=== PATIENT | male | born 1940 | race Caucasian/White ===

== ENCOUNTER 2021-05-31 10:16 | Outpatient (CLI) | payer MEDICARE, OTHER, SELFPAY ==
--- NOTE | ~2021-05-31 | US_ITS ---
EXAMINATION: US venous doppler [facility] EXAM DATE: 05/31/2021 10:42 INDICATION: M79.89 - Other specified soft tissue disorders, left lower extremity swelling. TECHNIQUE: Multiple grayscale, color flow and Doppler images of the left lower extremity deep venous system were obtained and reviewed. There is no prior study for comparison. FINDINGS: The left common femoral, femoral and profunda veins demonstrate normal color flow, respirat ory variation, augmentation and compressibility. Compressibility, color flow confirmed within the le ft popliteal, posterior tibial, peroneal, and greater saphenous veins. IMPRESSION: 1. No left lower extremity deep venous thrombosis. Reviewed, dictated and finalized at location A.
== END 2021-05-31 10:17 | disposition home or self-care (01) ==
PROVIDERS: PCP Family Medicine; Visit Provider Family Medicine
DX: M79.89 Other specified soft tissue disorders (principal)
CPT/HCPCS: 93971

== ENCOUNTER → 2021-08-01 09:23 | Outpatient (CLI) | payer MEDICARE, OTHER, SELFPAY ==
--- NOTE | ~2021-08-01 | XR_ITS ---
XR ankle LT min 3V 08/01/2021 09:49 Indication: Left ankle pain Procedure: 4 views left ankle Comparison: No prior studies for comparison. Findings: Ankle mortise intact. There are small degenerative calcaneal enthesophytes. Talar dome is n ormal. No acute fracture, subluxation or dislocation. Impression: 1: No acute bone or joint abnormality. Reviewed, dictated and finalized at location A. N PACKER Impression: 1: No acute bone or joint abnormality.
== END ==
PROVIDERS: PCP Family Medicine; Visit Provider Physician Assistant
DX: M25.472 Effusion, left ankle (principal)
CPT/HCPCS: 73610

== ENCOUNTER 2022-02-12 00:39 | Day surgery (SDC) | payer MEDICARE, SELFPAY ==
[2022-01-29 13:21] VITALS: BMI 29.9
[2022-02-12 09:54] VITALS: BP 116/61; PULSE 51; RESP 18; TEMP 36.6; O2SAT 99
[2022-02-12] MEDS: LACTATED RINGERS 1,000 ML 150 ML IV CONT (10:05)
--- NOTE | 2022-02-12 10:18 | P.CONGI_ITS ---
Assessment and Plan Assessment and plan (1) History of colon polyps: Code(s): Z86.010 - Personal history of colonic polyps Status: Acute Assessment and Plan: Patient has a history of colon polyps. Most recently in 2019. Patient presents today for surveillance colonoscopy. (2) Family history of colon cancer in father: Code(s): Z80.0 - Family history of malignant neoplasm of digestive organs Status: Acute Assessment and Plan: Patient's father has had colon cancer. Continued surveillance colonoscopies is advised as long as patient remains in good health. Typically every 3-5 years. GI Consult Note Consult date/time: 02/12/22 10:18 HPI: Wing Gorve is a 81 year old male Presents for screening colonoscopy. Patient's current weight appetite bowel movements are normal. He denies abdominal pain. Patient has had multiple previous colonoscopies. He has had colon polyps on previous exams. Most recent exam was 3 years prior to this. Patient is family history is significant his father had colon cancer while in his 60s. Patient presents today for neoplasia screening. Patient's past medical history is significant for a melanoma removed in the past and felt to be resected in cured. Review of Systems Review of Systems: Review of systems noncontributory. [facility] Past Medical History Medical History (Updated 02/12/22 @ 10:20 by Dhaval Kim MD) Family history of colon cancer History of melanoma Family History Family History Father Hypertension Family history of elevated blood lipids Carcinoma of colon Other No family history of cardiovascular disease Social History Social History (Updated 01/14/22 @ 11:04 by Aneta Capps PA-C) Smoking status: Former smoker Tobacco type: pipe Alcohol intake: current Drinks per week: 7 Substance use: never Substance use type: does not use Living arrangements: with family Spiritual care concerns: No Meds Home Medications and Allergies Home Medications Medication Instructions Recorded Confirmed Type hydrochlorothiazide 12.5 mg tablet 12.5 mg PO QAM #7 tabs 05/31/21 02/12/22 Rx atenolol 25 mg tablet See Rx Instructions .Route 09/10/21 02/12/22 Rx .COMPLEX #90 tabs atorvastatin 10 mg tablet 10 mg PO .COMPLEX #45 tabs 09/20/21 02/12/22 Rx tamsulosin 0.4 mg capsule See Rx Instructions .Route 10/12/21 02/12/22 Rx .COMPLEX #180 caps Allergies Allergy/AdvReac Type Severity Reaction Status Date / Time No Known Allergies Allergy Verified 02/12/22 09:46 Vital Signs Vital Signs - 24 hr 02/12/22 09:54 Temperature 97.8 F Pulse Rate 51 L Respiratory Rate 18 Blood Pressure 116/61 Pulse Oximetry 99 Oxygen Delivery Room Air Exam Narrative: Physical exam reveals patient to be alert. Vital signs stable. HEENT exam is unremarkable. Patient is anicteric. Lungs are clear to auscultation and percussion. Heart is without murmur or extra sounds. Abdominal exam bowel sounds are present soft nontender with no organomegaly. Digital external rectal exam is normal.
--- NOTE | 2022-02-12 11:08 | P.PNAN_ITS ---
Anes - Initial Pre Proc Eval Procedure: Operation Date: 02/12/22 11:00 Proposed Procedures p Screening Colonoscopy - Dhaval Kim MD Date/Time: 02/12/22 11:08 Surgeon: Dhaval Kim MD Pre Op Diagnosis: hx of colon polyps Patient Data Age: 81 Gender: M Height: 1.83 m Weight: 95.8 kg Last Vital Signs Temp 97.8 F 02/12/22 09:54 Pulse 51 L 02/12/22 09:54 Resp 18 02/12/22 09:54 BP 116/61 02/12/22 09:54 Pulse Ox 99 02/12/22 09:54 O2 Del Method Room Air 02/12/22 09:54 Allergies Allergy/AdvReac Type Severity Reaction Status Date / Time No Known Allergies Allergy Verified 02/12/22 09:46 Home Medications Medication Instructions Recorded Confirmed Type hydrochlorothiazide 12.5 mg tablet 12.5 mg PO QAM #7 tabs 05/31/21 02/12/22 Rx atenolol 25 mg tablet See Rx Instructions .Route 09/10/21 02/12/22 Rx .COMPLEX #90 tabs atorvastatin 10 mg tablet 10 mg PO .COMPLEX #45 tabs 09/20/21 02/12/22 Rx tamsulosin 0.4 mg capsule See Rx Instructions .Route 10/12/21 02/12/22 Rx .COMPLEX #180 caps Patient hx anesthesia problems: none Family hx anesthesia problems: none Results Review: All pre-operative results and documents have been reviewed as part of the pre- operative evaluation. [facility] Past Medical History Medical History (Updated 02/12/22 @ 10:20 by Dhaval Kim MD) Family history of colon cancer History of melanoma Family History Family History Father Hypertension Family history of elevated blood lipids Carcinoma of colon Other No family history of cardiovascular disease Social History Social History (Updated 01/14/22 @ 11:04 by Aneta Capps PA-C) Smoking status: Former smoker Tobacco type: pipe Alcohol intake: current Drinks per week: 7 Substance use: never Substance use type: does not use Living arrangements: with family Spiritual care concerns: No Anes - Eval Final PreProcedure Day of Procedure 02/12/22 11:08 Patient weight: normal Heart: regular rate and rhythm Lungs: clear to auscultation Neurological: alert and oriented Last oral intake: >/= 8 hours Emergent: no Anesthetic plan: proceed Anesthesia type and monitoring: general GIVS and standard monitoring Results Review: All pre-operative results and documents have been reviewed as part of the pre- operative evaluation. Informed Consent: The patient's anesthetic plan and its attendant risks and benefits were discussed with the patient/family/POA. Questions were solicited and answers provided to the satisfaction of the patient/family/POA.
[2022-02-12 11:27] VITALS: BP 94/54; PULSE 52; RESP 13; O2SAT 96
[2022-02-12 11:37] VITALS: BP 97/56; PULSE 52; RESP 20; O2SAT 95
[2022-02-12 11:47] VITALS: BP 114/67; PULSE 53; RESP 16; O2SAT 95
== END 2022-02-12 11:56 | disposition home or self-care (01) ==
PROVIDERS: PCP Family Medicine; Visit Provider Internal Medicine Gastroenterology
PROC: 0DJD8ZZ Inspection of Lower Intestinal Tract, Via Natural or Artificial Opening Endoscopic (ICD-10-PCS; CPT 45378; principal; 2022-02-12 11:00)
DX: Z12.11 Encounter for screening for malignant neoplasm of colon (principal); D12.2 Benign neoplasm of ascending colon; Z80.0 Family history of malignant neoplasm of digestive organs; K64.8 Other hemorrhoids; Z85.820 Personal history of malignant melanoma of skin; Z87.891 Personal history of nicotine dependence
CPT/HCPCS: 45385; 88305; J2704; J7120

== ENCOUNTER 2022-03-14 14:44 | Outpatient (CLI) | payer MEDICARE, SELFPAY ==
--- NOTE | ~2022-03-14 | US_ITS ---
EXAMINATION: US venous doppler [facility] DATE: 03/14/2022 15:25 INDICATION: Left lower limb pain, other specified soft tissue disorders TECHNIQUE: Rodrigues scale images without and with compression and Doppler images of the left lower extrem ity veins were obtained. COMPARISON: None FINDINGS: The left common femoral vein, profunda femoral vein, femoral vein, popliteal vein, peroneal trunk, posterior tibial veins, and greater saphenous vein are patent. IMPRESSION: 1. Patent left lower extremity veins. No evidence of deep venous thrombosis. Reviewed, dictated and finalized at location F.
--- NOTE | ~2022-03-14 | XR_ITS ---
EXAMINATION: XR shoulder LT min 2V INDICATION: Left shoulder TECHNIQUE: Two views of the left shoulder are submitted. COMPARISON: None FINDINGS: Normal alignment. No fracture. There is moderate osteoarthritis of the acromioclavicular saul int and mild osteoarthritis of the glenohumeral joint. Soft tissues are unremarkable. IMPRESSION: 1. 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 Reviewed, dictated and finalized at location F.
--- NOTE | ~2022-03-14 | XR_ITS ---
EXAMINATION: XR shoulder RT min 2V INDICATION: Right shoulder pain TECHNIQUE: Two views of the right shoulder are submitted. COMPARISON: None FINDINGS: Normal alignment. No fracture. There is advanced osteoarthritis of the acromioclavicular saul int. Mild osteoarthritis is present in the glenohumeral joint. Soft tissues are unremarkable. IMPRESSION: 1. Osteoarthritis, worst at the acromioclavicular joint. Reviewed, dictated and finalized at location F.
== END 2022-03-14 14:45 | disposition home or self-care (01) ==
PROVIDERS: PCP Family Medicine; Visit Provider Family Medicine
DX: M79.89 Other specified soft tissue disorders (principal); M19.012 Primary osteoarthritis, left shoulder; M19.011 Primary osteoarthritis, right shoulder
CPT/HCPCS: 73030; 93971

== ENCOUNTER 2022-08-29 14:09 | Outpatient (CLI) | payer MEDICARE, SELFPAY ==
--- NOTE | ~2022-08-29 | US_ITS ---
US arterial ankle brachial ind INDICATION: Medication. Leg pain. TECHNIQUE: Segmental pressures and plethysmographic and Doppler waveforms of the brachial and lower e xtremity arteries were obtained. COMPARISON: None. FINDINGS: Right and left brachial artery pressures of 132 mm Hg and 128 mm Hg, respectively, are concordant (no rmal difference <= 30 mmHg). The right ankle-brachial index (BRYON) is 1.26 (normal >= 0.9-1.0). The right great toe-brachial index (TBI) is 0.78 (normal >= 0.60). The left BRYON is 1.24. The left TBI is 0.86. IMPRESSION: 1. Normal bilateral ankle and toe brachial indices. Reviewed, dictated and finalized at location A. OR BIOINFORMATICS SCIENTIST
== END 2022-08-29 14:10 | disposition home or self-care (01) ==
PROVIDERS: PCP Family Medicine; Visit Provider Family Medicine
DX: M79.89 Other specified soft tissue disorders (principal); I10 Essential (primary) hypertension; E88.81 Metabolic syndrome and other insulin resistance; E78.2 Mixed hyperlipidemia
CPT/HCPCS: 93922

== ENCOUNTER 2022-11-12 10:44 | Outpatient (CLI) | payer MEDICARE, SELFPAY ==
[2022-11-12 11:08] LABS: Kit Draw Collected
== END 2022-11-12 10:45 | disposition home or self-care (01) ==
LOC: ANHGOSHLAB 10:46
PROVIDERS: PCP Family Medicine; Visit Provider Family Medicine
DX: N18.30 Chronic kidney disease, stage 3 unspecified (principal); R22.30 Localized swelling, mass and lump, unspecified upper limb
CPT/HCPCS: 36415

== ENCOUNTER 2022-11-12 11:34 | Outpatient (CLI) | payer MEDICARE, SELFPAY ==
--- NOTE | ~2022-11-12 | CT_ITS ---
EXAMINATION: CT soft tissue neck chest w DATE: 11/12/2022 12:28 INDICATION: Symptoms concerning for malignancy for one month. TECHNIQUE: Computed tomography (CT) of the neck and chest was performed with 75 cc Omnipaque 350 intr avenous contrast. The dose-length product was 1016.71 mGy-cm. COMPARISON: None FINDINGS: There are multiple enlarged left supraclavicular lymph nodes, largest measuring approximate ly 2.8 cm. There are enlarged left axillary lymph nodes measuring up to 5.4 cm. There are mediastinal lymph nodes measuring up to 2.6 x 2.5 cm in the prevascular space. No significant vascular abnormali ty. No endobronchial lesions. There is periaortic lymphadenopathy as well as retrocrural lymph nodes which are enlarged measuring up to 3.5 cm. There are calcified granulomas of the liver and spleen. Sp august appears to be enlarged, although incompletely visualized. No endobronchial lesions. No focal air space consolidation. No pneumothorax. Mild thoracic spondylosis. No focal lytic or blastic lesions. N o significant vascular abnormalities. IMPRESSION: 1. Extensive lower cervical/supraclavicular, left axillary, mediastinal and retroperitoneal lymphaden opathy, suspicious for lymphoma or metastatic disease. Recommend percutaneous biopsy of left supracla vicular or axillary lymph nodes. Reviewed, dictated and finalized at location L. LE MOLDER IMPRESSION: 1. Extensive lower cervical/supraclavicular, left axillary, mediastinal and ret roperitoneal lymphadenopathy, suspicious for lymphoma or metastatic disease. Re commend percutaneous biopsy of left supraclavicular or axillary lymph nodes.
[2022-11-12 12:16] LABS: Estimated Glomerular Filt Rate 53
== END 2022-11-12 11:35 | disposition home or self-care (01) ==
PROVIDERS: PCP Family Medicine; Visit Provider Family Medicine
DX: R59.9 Enlarged lymph nodes, unspecified (principal); R61 Generalized hyperhidrosis
CPT/HCPCS: 36415; 70491; 71260; Q9967

== ENCOUNTER 2022-11-20 12:36 | Outpatient (CLI) | payer MEDICARE, SELFPAY ==
--- NOTE | ~2022-11-20 | US_ITS ---
EXAMINATION: US biopsy lymph node DATE: 11/20/2022 13:30 INDICATION: Enlarged lymph nodes, unspecified. TECHNIQUE: The procedure including the risks, benefits, and alternatives was discussed with the patie nt. Risks discussed included bleeding and infection. The patient understood the risks and agreed to p roceed. The skin overlying the left axilla was prepped and draped in usual sterile fashion. Anesthet ic was administered with 1% lidocaine subcutaneously. An 18 gauge core biopsy needle was then used t o obtain 6 core biopsy specimens under continuous sonographic guidance. The entry site was cleaned an d dressed. There were no immediate complications. FINDINGS: Ultrasound images demonstrate the needle in a 3.5 x 3.2 cm left axillary lymph node. IMPRESSION: 1. Ultrasound-guided core needle biopsy of a markedly enlarged left axillary lymph node. Reviewed, dictated and finalized at location A. ER CLIPPER HELPER IMPRESSION: 1. Ultrasound-guided core needle biopsy of a markedly enlarged left axillary ly mph node.
== END 2022-11-20 12:37 | disposition home or self-care (01) ==
PROVIDERS: PCP Family Medicine; Visit Provider Family Medicine
DX: C91.10 Chronic lymphocytic leukemia of B-cell type not having achieved remission (principal)
CPT/HCPCS: 38505; 76942; 88184; 88185; 88305; 88341; 88342

== ENCOUNTER 2022-11-25 16:58 | Outpatient (CLI) | payer MEDICARE, SELFPAY | END 2022-11-25 16:59 | disposition home or self-care (01) | PROVIDERS: PCP Family Medicine; Visit Provider Internal Medicine Hematology & Oncology | DX: C91.10 Chronic lymphocytic leukemia of B-cell type not having achieved remission (principal) | CPT/HCPCS: 88184; 88185 ==

== ENCOUNTER 2023-02-10 11:26 | Outpatient (CLI) | payer MEDICARE, SELFPAY ==
[2023-02-10 12:21] LABS: Hematocrit 42.6 % (42.0-52.0); Hemoglobin 13.5 g/dL (14.0-18.0); Immature Platelet Fraction Pct 8.1 % (0.9-11.2); Mean Corpuscular HGB Conc 31.7 g/dl (32-36); Mean Corpuscular Hemoglobin 27.4 pg (26-34); Mean Corpuscular Volume 86.6 fl (80-100); Mean Platelet Volume 11.6 fl (7.4-10.4); Platelet Count Result 136 k/mm3 (150-375); Red Blood Count 4.92 M/mm3 (4.6-6.20); Red Cell Distribution Width 14.6 % (11.5-14.5); White Blood Count 25.7 K/mm3 (4.5-10.0)
[2023-02-10 13:06] LABS: Atypical Lymphocytes Present; Lymphocytes Absolute Manual 24.15 K/mm3 (1.1-4.5); Monocytes Absolute Manual 0.51 K/mm3 (0.1-0.90); Monocytes Percent Manual 2 % (3-9); Neutrophils Percent Manual 4 % (46-73); Platelet Estimate Adequate (Adequate); Schistocytes None Seen (NORMAL); Smudge Cells FEW; Total Cells Counted 100
[2023-02-10 13:28] LABS: Alanine Aminotransferase 23 U/L (6-50); Albumin Level 3.7 g/dL (3.5-5.1); Alkaline Phosphatase 94 U/L (38-126); Anion Gap 5 mmol/L (8-16); Aspartate Amino Transferase 38 U/L (17-59); Blood Urea Nitrogen 26 mg/dL (9-20); Calcium 8.6 mg/dL (8.4-10.2); Carbon Dioxide 27 mmol/L (22-30); Chloride 104 mmol/L (98-107); Estimated Glomerular Filt Rate > 60; Glucose 92 mg/dL (65-110); Potassium 4.6 mmol/L (3.4-5.0); Sodium 136 mmol/L (137-145)
[2023-02-10 13:36] LABS: Lactate Dehydrogenase 223 U/L (120-246)
== END 2023-02-10 11:27 | disposition home or self-care (01) ==
PROVIDERS: PCP Family Medicine; Visit Provider Internal Medicine Hematology & Oncology
DX: C91.10 Chronic lymphocytic leukemia of B-cell type not having achieved remission (principal)
CPT/HCPCS: 36415; 80053; 83615; 85025; 85055

== ENCOUNTER 2023-04-01 15:15 | Outpatient (CLI) | payer MEDICARE, SELFPAY ==
[2023-04-01 15:27] LABS: Basophils Absolute Auto 0.1 K/mm3 (0.0-0.1); Basophils Percent Auto 0.4 % (0.2-1.2); Eosinophils Absolute Auto 0.7 K/mm3 (0-0.3); Eosinophils Percent Auto 2.2 % (0-4.4); Hematocrit 41.6 % (42.0-52.0); Hemoglobin 13.3 g/dL (14.0-18.0); Immature Granulocyte Absolute 0.05 K/mm3 (0.00-0.031); Immature Granulocyte Percent A 0.1 % (0-0.5); Lymphocytes Absolute Auto 27.98 K/mm3 (0.9-3.2); Lymphocytes Percent Auto 83.3 % (18.3-44.2); Mean Corpuscular Hemoglobin 27.9 pg (26-34); Mean Corpuscular Volume 87.2 fl (80-100); Mean Platelet Volume 10.6 fl (7.4-10.4); Monocytes Absolute Auto 0.9 K/mm3 (0.1-0.6); Monocytes Percent Auto 2.6 % (2.6-8.5); Neutrophils Absolute Auto 3.8 K/mm3 (1.3-6.7); Neutrophils Percent Auto 11.4 % (45.5-73.1); Platelet Count Result 154 k/mm3 (150-375); Red Blood Count 4.77 M/mm3 (4.6-6.20); White Blood Count 33.6 K/mm3 (4.5-10.0)
[2023-04-01 15:31] LABS: Blood Urea Nitrogen 28 mg/dL (8-26); Carbon Dioxide 28 mmol/L (22-30); Chloride 100 mmol/L (98-109); Estimated Glomerular Filt Rate 53; Glucose 98 mg/dL (70-105); Ionized Calcium (POC) 1.19 mmol/L (1.11-1.31); Potassium 4.4 mmol/L (3.5-4.9); Sodium 138 mmol/L (138-146)
[2023-04-01 15:34] LABS: Atypical Lymphocytes Present; Platelet Estimate Adequate (Adequate); Schistocytes None Seen (NORMAL); Smudge Cells FEW
[2023-04-01 16:30] LABS: Alanine Aminotransferase 23 U/L (6-50); Alkaline Phosphatase 98 U/L (38-126); Anion Gap 2 mmol/L (8-16); Aspartate Amino Transferase 36 U/L (17-59); Blood Urea Nitrogen 29 mg/dL (9-20); Carbon Dioxide 30 mmol/L (22-30); Chloride 102 mmol/L (98-107); Estimated Glomerular Filt Rate 58; Glucose 100 mg/dL (65-110); Lactate Dehydrogenase 223 U/L (120-246); Potassium 4.4 mmol/L (3.4-5.0); Sodium 134 mmol/L (137-145)
== END 2023-04-01 15:16 | disposition home or self-care (01) ==
LOC: ANHLAB 15:17
PROVIDERS: PCP Family Medicine; Visit Provider Internal Medicine Hematology & Oncology
DX: C91.10 Chronic lymphocytic leukemia of B-cell type not having achieved remission (principal)
CPT/HCPCS: 36415; 80047; 80053; 83615; 85025

== ENCOUNTER 2023-04-01 16:43 | Outpatient (CLI) | payer MEDICARE, SELFPAY ==
--- NOTE | ~2023-04-01 | US_ITS ---
EXAMINATION: US venous doppler [facility] DATE: 04/01/2023 17:28 INDICATION: Left lower limb swelling. TECHNIQUE: Grayscale ultrasound images without and with compression and Doppler ultrasound images of the left lower extremity veins were obtained. COMPARISON: None. FINDINGS: The visualized portions of left common femoral vein, profunda (deep) femoral vein, femoral vein, popl iteal vein, peroneal veins, posterior tibial veins, and greater saphenous vein outflow are patent. IMPRESSION: 1. No deep venous thrombosis. Reviewed, dictated and finalized at location E.
== END 2023-04-01 16:44 | disposition home or self-care (01) ==
PROVIDERS: PCP Family Medicine; Visit Provider Internal Medicine Hematology & Oncology
DX: M79.89 Other specified soft tissue disorders (principal)
CPT/HCPCS: 36415; 80047; 80053; 83615; 85025; 93971

== ENCOUNTER 2023-07-16 11:33 | Outpatient (CLI) | payer MEDICARE, SELFPAY ==
[2023-07-16 11:47] LABS: Basophils Absolute Auto 0.1 K/mm3 (0.0-0.1); Basophils Percent Auto 0.7 % (0.2-1.2); Eosinophils Absolute Auto 0.6 K/mm3 (0-0.3); Eosinophils Percent Auto 6.4 % (0-4.4); Hematocrit 41.6 % (42.0-52.0); Hemoglobin 13.4 g/dL (14.0-18.0); Immature Granulocyte Absolute 0.04 K/mm3 (0.00-0.031); Immature Granulocyte Percent A 0.5 % (0-0.5); Immature Platelet Fraction Pct 13.9 % (0.9-11.2); Lymphocytes Percent Auto 39.6 % (18.3-44.2); Mean Corpuscular HGB Conc 32.2 g/dl (32-36); Mean Corpuscular Hemoglobin 28.6 pg (26-34); Mean Corpuscular Volume 88.7 fl (80-100); Monocytes Absolute Auto 0.6 K/mm3 (0.1-0.6); Monocytes Percent Auto 7.5 % (2.6-8.5); Neutrophils Absolute Auto 3.9 K/mm3 (1.3-6.7); Neutrophils Percent Auto 45.3 % (45.5-73.1); Platelet Count Result 94 k/mm3 (150-375); Red Blood Count 4.69 M/mm3 (4.6-6.20); Red Cell Distribution Width 15.1 % (11.5-14.5); White Blood Count 8.6 K/mm3 (4.5-10.0)
== END 2023-07-16 11:34 | disposition home or self-care (01) ==
PROVIDERS: PCP Family Medicine; Visit Provider Internal Medicine Hematology & Oncology
DX: C91.10 Chronic lymphocytic leukemia of B-cell type not having achieved remission (principal)
CPT/HCPCS: 36415; 85025; 85055

== ENCOUNTER 2023-11-20 07:46 | Outpatient (RCR) | payer MEDICARE, SELFPAY | END 2024-02-18 23:59 | disposition home or self-care (01) | LOC: ANHAUDASC 07:46 | PROVIDERS: PCP Family Medicine; Visit Provider Family Medicine | DX: Z46.1 Encounter for fitting and adjustment of hearing aid (principal) | CPT/HCPCS: 92593 ==

== ENCOUNTER 2023-12-11 12:47 | Outpatient (CLI) | payer MEDICARE, SELFPAY | END 2023-12-11 12:48 | disposition home or self-care (01) | LOC: ANHAUDASC 12:48 | PROVIDERS: PCP Family Medicine; Visit Provider Nurse Practitioner | DX: H90.3 Sensorineural hearing loss, bilateral (principal) | CPT/HCPCS: 92557; 92567 ==

== ENCOUNTER 2024-01-19 10:42 | Outpatient (CLI) | payer MEDICARE, SELFPAY ==
--- NOTE | ~2024-01-19 | US_ITS ---
EXAMINATION: US venous doppler UE RT DATE: 01/19/2024 12:31 INDICATION: Right upper limb swelling. TECHNIQUE: Grayscale ultrasound images without and with compression and Doppler ultrasound images of the right upper extremity veins were obtained. COMPARISON: None. FINDINGS: The visualized portions of the right internal jugular vein, subclavian vein, axillary vein, brachial veins, basilic vein, cephalic vein, radial vein, and ulnar vein are patent. IMPRESSION: 1. No deep venous thrombosis. Reviewed, dictated and finalized at location A.
== END 2024-01-19 10:43 | disposition home or self-care (01) ==
LOC: ANHIMG 10:43
PROVIDERS: PCP Family Medicine; Visit Provider Internal Medicine Hematology & Oncology
DX: M79.89 Other specified soft tissue disorders (principal)
CPT/HCPCS: 93971

== ENCOUNTER 2024-02-03 10:19 | Outpatient (CLI) | payer MEDICARE, SELFPAY ==
--- NOTE | ~2024-02-03 | XR_ITS ---
Right Hand Technique: PA, oblique, and lateral views were obtained. Clinical History: Swelling Findings: No acute fracture or dislocation is seen. Osseous alignment is anatomic. There are subchond ral cysts at the second and third metacarpal heads. There are scattered mild degenerative changes of interphalangeal joints of the fingers. Soft tissues are unremarkable. Impression: Mild degenerative changes, as above. Reviewed, dictated and finalized at location . Impression: Mild degenerative changes, as above.
== END 2024-02-03 10:20 ==
LOC: GOSHIMG 10:21
PROVIDERS: PCP Family Medicine; Visit Provider Family Medicine
DX: M79.89 Other specified soft tissue disorders (principal)
CPT/HCPCS: 73130

== ENCOUNTER 2024-02-09 12:04 | Day surgery (SDC) | payer MEDICARE, SELFPAY ==
[2024-02-09] VITALS (11 sets, daily range): BP systolic 102–159; BP diastolic 55–115; PULSE 59–88; RESP 18–19; TEMP 36.2–36.5; O2SAT 96–100
--- NOTE | ~2024-02-09 | XR_ITS ---
EXAMINATION: XR esophogram water soluble DATE: 02/09/2024 16:33 INDICATION: Impacted food bolus with inability to swallow without vomiting TECHNIQUE: The patient drank water-soluble contrast. Fluoroscopic spot radiographs of the hypopharynx and esophagus were obtained. Fluoroscopy exposure time was 1.4 minutes. A total of 795 fluoroscopic images were recorded. Total DAP was 13.399 Gycm^2 COMPARISON: None. FINDINGS: On the initial swallow contrast can be seen fluid within the already distended esophagus. T here was an initial obstruction in the distal esophagus with irregular distal margin to the contrast bolus. After the images were saved contrast could be seen in the stomach and the filling defect in th e distal esophagus had resolved. Subsequent swallows passed freely into the stomach. There is a small sliding-type hiatal hernia with gastroesophageal junction approximately 3 to 4 cm above level of the diaphragm. There appears to be a fixed mild relative narrowing of the esophagus at the level of the esophageal bulb. There are smooth margins but with atypical undulating contour to the mucosa of the d istal esophagus. IMPRESSION: 1. Obstructing bolus of material in the distalmost esophagus on the initial swallow which passed spon taneously with no residual intraluminal material or obstruction on subsequent swallows. 2. Small sliding-type hiatal hernia with atypical contour and mild narrowing at the level of the esop hageal bulb which raises the possibility of focal esophagitis, Hassan's esophagus or malignancy and would recommend endoscopy for further evaluation. Reviewed, dictated and finalized at location A. IMPRESSION: 1. Obstructing bolus of material in the distalmost esophagus on the initial swa llow which passed spontaneously with no residual intraluminal material or obstr uction on subsequent swallows. 2. Small sliding-type hiatal hernia with atypical contour and mild narrowing at the level of the esophageal bulb which raises the possibility of focal esophag itis, Hassan's esophagus or malignancy and would recommend endoscopy for furth er evaluation.
--- NOTE | 2024-02-09 15:23 | PC.NURSE ---
gave report to GI charge nurse @[phone]. all questions answered.
[2024-02-09 15:26] LABS: Basophils Percent Auto 0.5 % (0.2-1.2); Eosinophils Absolute Auto 0.1 K/mm3 (0-0.3); Eosinophils Percent Auto 1.4 % (0-4.4); Hematocrit 45.1 % (42.0-52.0); Hemoglobin 14.7 g/dL (14.0-18.0); Immature Granulocyte Absolute 0.03 K/mm3 (0.00-0.031); Immature Granulocyte Percent A 0.4 % (0-0.5); Lymphocytes Absolute Auto 1.92 K/mm3 (0.9-3.2); Lymphocytes Percent Auto 26.3 % (18.3-44.2); Mean Corpuscular HGB Conc 32.6 g/dl (32-36); Mean Corpuscular Hemoglobin 28.4 pg (26-34); Mean Corpuscular Volume 87.1 fl (80-100); Mean Platelet Volume 12.7 fl (7.4-10.4); Monocytes Absolute Auto 0.6 K/mm3 (0.1-0.6); Monocytes Percent Auto 7.5 % (2.6-8.5); Neutrophils Absolute Auto 4.7 K/mm3 (1.3-6.7); Neutrophils Percent Auto 63.9 % (45.5-73.1); Platelet Count Result 104 k/mm3 (150-375); Red Blood Count 5.18 M/mm3 (4.6-6.20); Red Cell Distribution Width 13.6 % (11.5-14.5); White Blood Count 7.3 K/mm3 (4.5-10.0)
[2024-02-09 15:39] LABS: Anion Gap 7 mmol/L (4-12); Blood Urea Nitrogen 21 mg/dL (9-20); Carbon Dioxide 25 mmol/L (22-30); Chloride 108 mmol/L (98-107); Estimated CRCL calculation 46 ml/min; Estimated Glomerular Filt Rate > 60; Glucose 97 mg/dL (65-110); Sodium 140 mmol/L (137-145)
--- NOTE | 2024-02-09 16:06 | PC.NURSE ---
Shanel from GI states they will place IV and start fluids. updated family member Suha per patient request
--- NOTE | 2024-02-09 16:09 | WPDANESEPPF ---
Anes - Initial Pre Proc Eval Procedure: Operation Date: 02/09/24 16:00 Proposed Procedures p Esophagogastroduodenoscopy - Tano Barrera MD Date/Time: 02/09/24 16:09 Pre Op Diagnosis: difficulty swallowing Patient Data Age: 83 Gender: M Height: 1.8 m Weight: 90.6 kg Last Vital Signs Temp 36.2 C L 02/09/24 12:20 Pulse 88 02/09/24 15:31 Resp 19 02/09/24 15:31 BP 150/81 H 02/09/24 15:31 Pulse Ox 100 02/09/24 15:38 O2 Del Method Room Air 02/09/24 13:59 Allergies Allergy/AdvReac Type Severity Reaction Status Date / Time No Known Allergies Allergy Verified 02/09/24 16:08 Home Medications Medication Instructions Recorded Confirmed Type naproxen 500 mg tablet See Rx Instructions .Route 02/10/23 02/03/24 Rx .COMPLEX #60 tabs zanubrutinib 80 mg capsule mg PO 07/28/23 02/03/24 History (Reecekinsa) atenolol 25 mg tablet 25 mg PO DAILY #90 tabs 08/28/23 02/03/24 Rx atorvastatin 10 mg tablet 10 mg PO .COMPLEX #45 tabs 08/28/23 02/03/24 Rx tamsulosin 0.4 mg capsule See Rx Instructions .Route 11/03/23 02/03/24 Rx .COMPLEX #180 caps cephalexin 500 mg capsule 500 mg PO Q8H #30 caps 02/03/24 02/03/24 Rx methylprednisolone 4 mg tablets in See Rx Instructions PO PER PKG DIR 02/03/24 02/03/24 Rx a dose pack (Medrol (Anthony)) #21 ea Laboratory Tests 02/09/24 15:14 WBC 7.3 K/mm3 (4.5-10.0) RBC 5.18 M/mm3 (4.6-6.20) Hgb 14.7 g/dL (14.0-18.0) Hct 45.1 % (42.0-52.0) MCV 87.1 fl (80-100) MCH 28.4 pg (26-34) MCHC 32.6 g/dl (32-36) RDW 13.6 % (11.5-14.5) Plt Count 104 L k/mm3 (150-375) MPV 12.7 H fl (7.4-10.4) Immature Gran % (Auto) 0.4 % (0-0.5) Neut % (Auto) 63.9 % (45.5-73.1) Lymph % (Auto) 26.3 % (18.3-44.2) [place] % (Auto) 7.5 % (2.6-8.5) Eos % (Auto) 1.4 % (0-4.4) Baso % (Auto) 0.5 % (0.2-1.2) Lymph # (Auto) 1.92 K/mm3 (0.9-3.2) [place] # (Auto) 0.6 K/mm3 (0.1-0.6) Eos # (Auto) 0.1 K/mm3 (0-0.3) Baso # (Auto) 0.0 K/mm3 (0.0-0.1) Abs Immat Gran (auto) 0.03 K/mm3 (0.00-0.031) Absolute Neuts (auto) 4.7 K/mm3 (1.3-6.7) Absolute Nucleated RBC 0.000 K/mm3 (0.0-0.012) Nucleated RBC % 0.0 % (0.0-0.2) Sodium 140 mmol/L (137-145) Potassium 4.0 mmol/L (3.4-5.0) Chloride 108 H mmol/L (98-107) Carbon Dioxide 25 mmol/L (22-30) Anion Gap 7 mmol/L (4-12) BUN 21 H mg/dL (9-20) Creatinine 1.10 mg/dL (0.7-1.3) Estim Creat Clear Calc 46 ml/min Estimated GFR > 60 (59 - ) Glucose 97 mg/dL (65-110) Calcium 9.0 mg/dL (8.4-10.2) Patient hx anesthesia problems: none Family hx anesthesia problems: none Results Review: All pre-operative results and documents have been reviewed as part of the pre-operative evaluation. [facility] Past Medical History Medical History (Updated 02/09/24 @ 16:11 by Haroldo Dc DO) Chronic kidney disease, stage 3 Essential (primary) hypertension Family history of colon cancer History of melanoma Mixed hyperlipidemia Family History Family History Father Hypertension Family history of elevated blood lipids Carcinoma of colon Other No family history of cardiovascular disease Social History Social History Social History: Caffeine-daily Smoking status: Former smoker Tobacco type: pipe Alcohol intake: current Drinks per week: 7 Substance use: never Substance use type: does not use Lack of Transportation: No Lack of Food: Never True Current Housing: I Have Housing Concerned About Future Housing: No Difficulty Paying Gas/Electric Bills: No Difficulty Paying for Meds: No Currently Unemployed: No Education: Associate Degree Difficulty w/ Childcare or Family Care: No Living arrangements: with fam
[2024-02-09] MEDS: LACTATED RINGERS 1,000 ML 150 ML IV CONT (16:14)
--- NOTE | 2024-02-09 16:23 | PM.HPGS ---
History of Present Illness History of Present Illness Consent: Risks, benefits, and alternatives have been discussed and questions answered. Patient agrees to proceed with procedure. Chief complaint: difficulty swallowing Narrative: Wing Grove is a 83 year old male here with food bolus after had chicken for dinner yesterday, came to ER today, he was unable to swallow then sent over to GI lab for evaluation. Here he says that feels food probably already passed down since he is more comfortable. Two similar episodes last few years but never had egd. Review of Systems Review of Systems: All systems reviewed & are unremarkable except as noted in HPI and below [facility] Past Medical History Medical History (Updated 02/09/24 @ 16:27 by Tano Barrera MD) Chronic kidney disease, stage 3 Dysphagia Essential (primary) hypertension Family history of colon cancer Food impaction of esophagus History of melanoma Mixed hyperlipidemia Family History Family History Father Hypertension Family history of elevated blood lipids Carcinoma of colon Other No family history of cardiovascular disease Social History Social History Social History: Caffeine-daily Smoking status: Former smoker Tobacco type: pipe Alcohol intake: current Drinks per week: 7 Substance use: never Substance use type: does not use Lack of Transportation: No Lack of Food: Never True Current Housing: I Have Housing Concerned About Future Housing: No Difficulty Paying Gas/Electric Bills: No Difficulty Paying for Meds: No Currently Unemployed: No Education: Associate Degree Difficulty w/ Childcare or Family Care: No Living arrangements: with family Spiritual care concerns: No Meds Home Medications and Allergies Home Medications Medication Instructions Recorded Confirmed Type naproxen 500 mg tablet See Rx Instructions .Route 02/10/23 02/03/24 Rx .COMPLEX #60 tabs zanubrutinib 80 mg capsule mg PO 07/28/23 02/03/24 History (Brukinsa) atenolol 25 mg tablet 25 mg PO DAILY #90 tabs 08/28/23 02/03/24 Rx atorvastatin 10 mg tablet 10 mg PO .COMPLEX #45 tabs 08/28/23 02/03/24 Rx tamsulosin 0.4 mg capsule See Rx Instructions .Route 11/03/23 02/03/24 Rx .COMPLEX #180 caps cephalexin 500 mg capsule 500 mg PO Q8H #30 caps 02/03/24 02/03/24 Rx methylprednisolone 4 mg tablets in See Rx Instructions PO PER PKG DIR 02/03/24 02/03/24 Rx a dose pack (Medrol (Anthony)) #21 ea Allergies Allergy/AdvReac Type Severity Reaction Status Date / Time No Known Allergies Allergy Verified 02/09/24 16:08 Vital Signs Vital Signs - 24 hr 02/09/24 12:20 02/09/24 13:59 02/09/24 13:59 Temperature 97.2 F L Pulse Rate 59 L 64 Respiratory Rate 18 18 18 Blood Pressure 154/76 H 146/80 H Pulse Oximetry 98 96 Oxygen Delivery Room Air Room Air 02/09/24 15:38 02/09/24 14:31 02/09/24 14:46 Temperature Pulse Rate Respiratory Rate Blood Pressure 137/82 132/115 H Pulse Oximetry 100 100 98 Oxygen Delivery 02/09/24 15:16 02/09/24 15:31 02/09/24 16:09 Temperature 97.7 F Pulse Rate 88 69 Respiratory Rate 19 18 Blood Pressure 159/89 H 150/81 H 148/70 H Pulse Oximetry 100 98 97 Oxygen Delivery Room Air Exam Const: General: comfortable and no acute distress HENMT: Face/Nose/Sinus: Normal nares present Eyes: General: appearance normal, both eyes and all related structures Neck: Neck: no JVD Resp: Auscultation: clear to auscultation bilaterally Cardio: Rate: regular rate Rhythm: regular rhythm GI: Inspection: non-distended GI Palp: Yes Soft to palpation Skin: General skin exam: normal color Neuro: General: gait normal Speech: normal speech Extrem: General: normal to inspection Psych: Mental Status: mental status grossly normal Assessment and
--- NOTE | 2024-02-09 16:55 | ED.GENADULT ---
HPI - General Adult General Chief complaint: Unspecified Stated complaint: difficulty swallowing Time Seen by Provider: 02/09/24 14:42 History of Present Illness HPI narrative: Patient states that he had some chicken, asparagus last night, and then since then has not been able to keep anything down, even sips of water and coffee. States he has had issues like this in the past but never lasting this long Related Data Home Medications Medication Instructions Recorded Confirmed zanubrutinib 80 mg capsule mg PO 07/28/23 02/03/24 (Brukinsa) Allergies Allergy/AdvReac Type Severity Reaction Status Date / Time No Known Allergies Allergy Verified 02/09/24 16:08 Review of Systems Review of Systems: All systems reviewed & are unremarkable except as noted in HPI and below PMFSH Past Medical History Medical History (Updated 02/09/24 @ 16:57 by Abigail Tobin MD) Chronic kidney disease, stage 3 Dysphagia Essential (primary) hypertension Family history of colon cancer Food impaction of esophagus History of melanoma Mixed hyperlipidemia Family History Family History Father Hypertension Family history of elevated blood lipids Carcinoma of colon Other No family history of cardiovascular disease Social History Social History Social History: Caffeine-daily Smoking status: Former smoker Tobacco type: pipe Alcohol intake: current Drinks per week: 7 Substance use: never Substance use type: does not use Lack of Transportation: No Lack of Food: Never True Current Housing: I Have Housing Concerned About Future Housing: No Difficulty Paying Gas/Electric Bills: No Difficulty Paying for Meds: No Currently Unemployed: No Education: Associate Degree Difficulty w/ Childcare or Family Care: No Living arrangements: with family Spiritual care concerns: No Exam Narrative: EXAMINATION OF ORGAN SYSTEMS/BODY AREAS: Constitutional: Vital signs per nursing GENERAL:[No acute distress, non-toxic appearing.] HEAD: Normal with no signs of head trauma. EYES: EOMI, conjunctiva normal ENT: Hearing grossly intact LUNGS: Nonlabored breathing. HEART: [Regular rate and rhythm] ABD: [Soft], [nontender to palpation] EXT: Normal range of motion SKIN: [No rashes or lesions.] NEURO: [Alert and oriented x 3. No gross focal sensory or strength deficits.] PSYCH: Normal affect Course Vital Signs Vital signs: Vital Signs Temperature 97.2 F L 02/09/24 12:20 Pulse Rate 59 L 02/09/24 12:20 Respiratory Rate 18 02/09/24 12:20 Blood Pressure 154/76 H 02/09/24 12:20 Pulse Oximetry 98 02/09/24 12:20 Oxygen Delivery Room Air 02/09/24 12:20 Temperature 97.7 F 02/09/24 16:09 Pulse Rate 69 02/09/24 16:51 Respiratory Rate 18 02/09/24 16:51 Blood Pressure 102/55 L 02/09/24 16:51 Pulse Oximetry 100 02/09/24 16:51 Oxygen Delivery Room Air 02/09/24 16:51 Medical Decision Making MDM Narrative Medical decision making narrative: Patient presenting with symptoms concerning for fluid bolus, he is very well-appearing here, no respiratory distress, I did have him try to take some sips here but after several minutes it did come back up. GI is consulted, esophagram ordered which does show fluid bolus, he is taken to endoscopy. Vital Signs Vital Signs: Vital Signs Temperature 97.2 F L 02/09/24 12:20 Pulse Rate 59 L 02/09/24 12:20 Respiratory Rate 18 02/09/24 12:20 Blood Pressure 154/76 H 02/09/24 12:20 Pulse Oximetry 98 02/09/24 12:20 Oxygen Delivery Room Air 02/09/24 12:20 Temperature 97.7 F 02/09/24 16:09 Pulse Rate 69 02/09/24 16:51 Respiratory Rate 18 02/09/24 16:51 Blood Pressure 102/55 L 02/09/24 16:51 Pulse Oximetry 100 02/09/24 16:51 Oxygen Delivery Room Air 02/09/24 16:51 Lab Data
== END 2024-02-09 17:20 | disposition home or self-care (01) ==
LOC: ANHED 16:48 → ANHENDO 17:06
PROVIDERS: Emergency Provider Emergency Medicine; PCP Family Medicine; Visit Provider Internal Medicine Gastroenterology
PROC: 0DJ08ZZ Inspection of Upper Intestinal Tract, Via Natural or Artificial Opening Endoscopic (ICD-10-PCS; CPT 43235; principal; 2024-02-09 16:00)
DX: K29.50 Unspecified chronic gastritis without bleeding (principal); K21.00 Gastro-esophageal reflux disease with esophagitis, without bleeding; K22.2 Esophageal obstruction; E78.2 Mixed hyperlipidemia; I12.9 Hypertensive chronic kidney disease with stage 1 through stage 4 chronic kidney disease, or unspecified chronic kidney disease; N18.30 Chronic kidney disease, stage 3 unspecified; Z79.1 Long term (current) use of non-steroidal anti-inflammatories (NSAID); Z87.891 Personal history of nicotine dependence; Z85.820 Personal history of malignant melanoma of skin; Z80.0 Family history of malignant neoplasm of digestive organs
CPT/HCPCS: 43239; 43249; 36415; 74220; 80048; 85025; 88305; 99285; C1726; J2704; J7120

== ENCOUNTER 2024-04-12 13:27 | Outpatient (CLI) | payer MEDICARE, SELFPAY ==
[2024-04-12 13:45] LABS: Basophils Absolute Auto 0.1 K/mm3 (0.0-0.1); Basophils Percent Auto 0.9 % (0.2-1.2); Eosinophils Absolute Auto 0.2 K/mm3 (0-0.3); Eosinophils Percent Auto 2.3 % (0-4.4); Hematocrit 42.1 % (42.0-52.0); Hemoglobin 13.6 g/dL (14.0-18.0); Immature Granulocyte Absolute 0.02 K/mm3 (0.00-0.031); Immature Granulocyte Percent A 0.3 % (0-0.5); Lymphocytes Absolute Auto 2.14 K/mm3 (0.9-3.2); Lymphocytes Percent Auto 27.2 % (18.3-44.2); Mean Corpuscular HGB Conc 32.3 g/dl (32-36); Mean Corpuscular Hemoglobin 27.9 pg (26-34); Mean Corpuscular Volume 86.3 fl (80-100); Mean Platelet Volume 12.3 fl (7.4-10.4); Monocytes Absolute Auto 0.6 K/mm3 (0.1-0.6); Monocytes Percent Auto 7.6 % (2.6-8.5); Neutrophils Absolute Auto 4.9 K/mm3 (1.3-6.7); Neutrophils Percent Auto 61.7 % (45.5-73.1); Platelet Count Result 127 k/mm3 (150-375); Red Blood Count 4.88 M/mm3 (4.6-6.20); Red Cell Distribution Width 13.8 % (11.5-14.5); White Blood Count 7.9 K/mm3 (4.5-10.0)
[2024-04-12 13:51] LABS: Blood Urea Nitrogen 22 mg/dL (8-26); Carbon Dioxide 25 mmol/L (22-30); Chloride 104 mmol/L (98-109); Estimated Glomerular Filt Rate 52; Glucose 99 mg/dL (70-105); Ionized Calcium (POC) 1.16 mmol/L (1.11-1.31); Potassium 4.2 mmol/L (3.5-4.9); Sodium 138 mmol/L (138-146)
== END 2024-04-12 13:28 | disposition home or self-care (01) ==
LOC: ANHLAB 13:29
PROVIDERS: PCP Family Medicine; Visit Provider Internal Medicine Hematology & Oncology
DX: C91.10 Chronic lymphocytic leukemia of B-cell type not having achieved remission (principal)
CPT/HCPCS: 36415; 80047; 85025

== ENCOUNTER 2024-06-21 14:00 | Outpatient (CLI) | payer MEDICARE, SELFPAY ==
[2024-06-21 14:19] LABS: Basophils Absolute Auto 0.1 K/mm3 (0.0-0.1); Basophils Percent Auto 0.5 % (0.2-1.2); Eosinophils Absolute Auto 0.3 K/mm3 (0-0.3); Eosinophils Percent Auto 2.7 % (0-4.4); Hematocrit 41.9 % (42.0-52.0); Hemoglobin 13.6 g/dL (14.0-18.0); Immature Granulocyte Absolute 0.04 K/mm3 (0.00-0.031); Immature Granulocyte Percent A 0.4 % (0-0.5); Lymphocytes Absolute Auto 2.23 K/mm3 (0.9-3.2); Lymphocytes Percent Auto 22.6 % (18.3-44.2); Mean Corpuscular HGB Conc 32.5 g/dl (32-36); Mean Corpuscular Hemoglobin 28.1 pg (26-34); Mean Corpuscular Volume 86.6 fl (80-100); Mean Platelet Volume 12.8 fl (7.4-10.4); Monocytes Percent Auto 10.2 % (2.6-8.5); Neutrophils Absolute Auto 6.3 K/mm3 (1.3-6.7); Neutrophils Percent Auto 63.6 % (45.5-73.1); Platelet Count Result 143 k/mm3 (150-375); Red Blood Count 4.84 M/mm3 (4.6-6.20); Red Cell Distribution Width 13.4 % (11.5-14.5); White Blood Count 9.9 K/mm3 (4.5-10.0)
[2024-06-21 14:24] LABS: Blood Urea Nitrogen 20 mg/dL (8-26); Carbon Dioxide 24 mmol/L (22-30); Chloride 102 mmol/L (98-109); Estimated Glomerular Filt Rate 52; Glucose 98 mg/dL (70-105); Ionized Calcium (POC) 1.18 mmol/L (1.11-1.31); Sodium 139 mmol/L (138-146)
== END 2024-06-21 14:01 | disposition home or self-care (01) ==
PROVIDERS: PCP Family Medicine; Visit Provider Internal Medicine Hematology & Oncology
DX: C91.10 Chronic lymphocytic leukemia of B-cell type not having achieved remission (principal)
CPT/HCPCS: 36415; 80047; 85025

== ENCOUNTER 2024-08-21 07:20 | Outpatient (CLI) | payer MEDICARE, SELFPAY ==
--- NOTE | ~2024-08-21 | MR_ITS ---
EXAMINATION: MR brain IAC wo/w con DATE: 08/21/2024 09:44 INDICATION: Unspecified hearing loss, suspected ear. TECHNIQUE: Magnetic resonance imaging (MRI) of the brain, brainstem, and internal auditory canals was performed without and with 20 mL MultiHance intravenous contrast. 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 There are scattered areas of nonspecific inc reased T2-weighted signal intensity in the cerebral white matter, which is within normal limits for t he patient's age. There is a 4 x 3 mm enhancing mass in the right internal auditory canal. There is n o intracranial hemorrhage or acute infarction. The ventricles are normal in size. There is a right ot omastoid effusion. There is a left mastoid effusion. The inner ears are normal. IMPRESSION: 1. 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 2. Right otomastoid effusion. Left mastoid effusion. 3. 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 Reviewed, dictated and finalized at location A. CAL REGISTRAR
--- NOTE | ~2024-08-21 | MR_ITS ---
EXAMINATION: MR wrist RT wo/w con DATE: 08/21/2024 09:44 INDICATION: Other specified soft tissue disorders. Right hand swelling and pain. TECHNIQUE: Magnetic resonance imaging (MRI) of the wrist was performed without and with 20 mL MultiHa nce intravenous contrast. COMPARISON: Right hand radiographs 02/03/2024 FINDINGS: Intrinsic ligaments: There is a partial tear of the proximal (membranous) component of scapholunate ligament. Lunotriquetr al ligament is intact. Triangular fibrocartilage complex (TFCC): There is a full-thickness tear of tearing of the triangular fibrocartilage. Extensor wrist: The extensor tendons are normal. Flexor wrist: The flexor tendons are normal. Median nerve is normal. Guyon's canal: The ulnar nerve is normal. Bones/other: Alignment is normal. No fracture. There is mild osteoarthritis of radioscaphoid joint, scapholunate j oint, triscaphe joint, and first carpometacarpal joint. There are subchondral edema-like marrow signa l intensity in lunate at its ulnar aspect. There is enhancing synovitis in the radiocarpal compartmen t, midcarpal compartment, and carpometacarpal joints. IMPRESSION: 1. Mild polyarticular osteoarthritis. Reviewed, dictated and finalized at location A. NOLOGY INTEGRATION SPECIALIST
== END 2024-08-21 07:21 | disposition home or self-care (01) ==
PROVIDERS: PCP Family Medicine; Visit Provider Physician Assistant Surgical
DX: H91.90 Unspecified hearing loss, unspecified ear (principal); M79.89 Other specified soft tissue disorders; M19.031 Primary osteoarthritis, right wrist
CPT/HCPCS: 70553; 73223; A9577

== ENCOUNTER 2024-10-18 15:04 | Outpatient (CLI) | payer MEDICARE, SELFPAY ==
[2024-10-18 15:20] LABS: Blood Urea Nitrogen 20 mg/dL (8-26); Carbon Dioxide 27 mmol/L (22-30); Chloride 103 mmol/L (98-109); Estimated Glomerular Filt Rate 52; Glucose 104 mg/dL (70-105); Ionized Calcium (POC) 1.18 mmol/L (1.11-1.31); Potassium 4.2 mmol/L (3.5-4.9); Sodium 139 mmol/L (138-146)
[2024-10-18 15:20] LABS: Basophils Absolute Auto 0.1 K/mm3 (0.0-0.1); Basophils Percent Auto 0.8 % (0.2-1.2); Eosinophils Absolute Auto 0.3 K/mm3 (0-0.3); Eosinophils Percent Auto 3.6 % (0-4.4); Hematocrit 41.8 % (42.0-52.0); Hemoglobin 13.6 g/dL (14.0-18.0); Immature Granulocyte Absolute 0.04 K/mm3 (0.00-0.031); Immature Granulocyte Percent A 0.5 % (0-0.5); Lymphocytes Absolute Auto 1.91 K/mm3 (0.9-3.2); Lymphocytes Percent Auto 26.2 % (18.3-44.2); Mean Corpuscular HGB Conc 32.5 g/dl (32-36); Mean Corpuscular Hemoglobin 28.2 pg (26-34); Mean Corpuscular Volume 86.5 fl (80-100); Mean Platelet Volume 12.8 fl (7.4-10.4); Monocytes Absolute Auto 0.7 K/mm3 (0.1-0.6); Monocytes Percent Auto 9.5 % (2.6-8.5); Neutrophils Absolute Auto 4.3 K/mm3 (1.3-6.7); Neutrophils Percent Auto 59.4 % (45.5-73.1); Platelet Count Result 121 k/mm3 (150-375); Red Blood Count 4.83 M/mm3 (4.6-6.20); Red Cell Distribution Width 13.2 % (11.5-14.5); White Blood Count 7.3 K/mm3 (4.5-10.0)
[2024-10-18 15:23] LABS: Platelet Estimate Decreased (Adequate); Schistocytes None Seen
[2024-10-18 15:25] LABS: Atypical Lymphocytes Present; Smudge Cells FEW
--- OUTSIDE RECORDS SUMMARY | 2024-10-18 15:54 | XMS_ITS | Encounter Summary ---
Author Organization [facility] Address [address] [place] [address] Care Team Providers Care Animal Care Taker Name Role Phone Umang Bah MD Primary Care Provider [phone] Martha Gonsales DO Primary Care Provider [phone] Encounter Details Date Type Department Care Team (Late st Contact Info) Description 04/02/2018 Lab Requisition [facility] Care DermPath Lab [address] [place] [address] Jeramie Osullivan MD [address] [place] [address] Social History Tobacco Use Types Packs/Day Years Used Date Smoking Tobacco: Former Alcohol Use Standard Drinks/Week Comments Yes 0 (1 standard drink = 0.6 oz pur e alcohol) Sex and Gender Information Value Date Recorded Sex Assigned at Not on file Gender Identity Not on file Sexual Orientation Not on file documented as of this encounter Plan of Treatment Not on file documented as of this encounter Procedures Procedure Name Priority Date/Time Associated Diagnosis Comments DERMATOPATHOLOGY Routine 04/01/2018 12:0 0 AM CDT documented in this encounter Results * DERMATOPATHOLOGY (04/01/2018 12:00 AM CDT) Case Report Dermatopathology Report ? Case: [id number] ? Authorizing Provider: ??Jeramie Osullivan MD ?Collected: ? 04/01/2018 12:00 AM ? Pathologist: ? Mary Jaeger MD ? Received: ?04/02/2018 11:55 AM ? Specimens: ?? A) - Skin, right lower lat cheek ? B) - Skin, right upper lateral arm ? 8 2:22 PM CDT DERMATOPATHOLOGY LABORATORY Final Diagnosis Specimen A. SKIN, right lower lat cheek: BASAL CELL CARCINOMA, NODULAR TYPE (C44.319) Specimen B. SKIN, right upper lateral arm: MALIGNANT MELANOMA, SUPERFICIAL SPREADING TYPE (C43.61) PRESENT AT MARGIN (see microscopic description and synoptic report) 8 2:22 PM CDT DERMATOPATHOLOGY LABORATORY Clinical History A-B: R/O SCC, BCC. 8 2:22 PM CDT DERMATOPATHOLOGY LABORATORY Gross Description Specimen A: Received is one formalin filled container labeled with the patient's name and designated right lower lat cheek. The specimen consists of a shave biopsy measuring [id number]. Jar 0. Specimen B: Received is one formalin filled container labeled with the patient's name and designated right upper lateral arm. The specimen consists of a shave biopsy measuring [id number]. Jar 0. 8 2:22 PM [facility] [place] 2[place] DERMATOPATHOLOGY LABORATORY Microscopic Description Specimen A. SKIN, right lower lat cheek: Within the dermis there are aggregates of basaloid cells with a high nuclear to cytoplasmic ratio and peripheral palisading. Specimen B. SKIN, right upper lateral arm: There is a proliferation melanocytes distributed in an irregular pattern singly and in nests at all levels of the epidermis. In the dermis there are irregular nests and single scattered melanocytes. This lesion is present at the margin of the specimen. 8 2:22 PM [facility] [place] DERMATOPATHOLOGY LABORATORY Disclaimer An external and internal positive and negative controls are appropriate for the histochemical, immunohistochemical and immunofluorescence stain(s) in this case (if any), except where stated explicitly. The performance characteristics of the stain(s) cited in this report were developed and its performance characteristic determined by the Dermatopathology Laboratory at [facility]. These tests need not be, and therefore are not, approved by the [place] Food and Drug Administration. The tests are used for clinical purposes. Billing Codes Specimen Charges Stain Charges 46528 24371 1 1 8 2:22 PM [facility] [place]NOTE 2[facility] DERMATOPATHOLOGY LABORATORY Embedded Images 2:22 PM [facility] [place]NOTE 2] DERMATOPATHOLOGY LABORATORY Synoptic Report MELANOMA OF THE SKIN: Biopsy ??(Melanoma Bx - B) SPECIMEN ?? Procedure: ?Biopsy, shave ?? Specimen Laterality: ?Right TUMOR ?? Tumor Site: ?Skin of upper limb and shoulder: right upper lateral arm ?? : ? Histologic Type: ?Superficial spreading melanoma ?? Maximum Tumor (Breslow) Thickness in Millimeters (mm): ?At least: 0.5 Millimeters (mm) ? : ?Tumor is present at the surgical margin; therefore, current depth may exceed the current one. ? Tumor Extent: ? Anatomic (Pritesh) Level: ?III (melanoma fills and expands papillary dermis) ? Ulceration: ?Not identified ?? Accessory Findings: ? Mitotic Rate: ?None identified ? Lymphovascular Invasion: ?Not identified ? Neurotropism: ?Not identified ? Tumor-Infiltrating Lymphocytes: ?Present, nonbrisk ? Tumor Regression: ?Present ?? MARGINS: ? Peripheral Margins: ?Uninvolved by invasive melanoma ? Status of Melanoma In Situ Involvement at Peripheral Margins: ?Involved by melanoma in situ ? Deep Margin: ?Uninvolved by invasive melanoma ?? PATHOLOGIC STAGE CLASSIFICATION (pTNM, AJCC 8th Edition): ? Primary Tumor (pT): ?pT1a Comment(s) Comment(s): ?Dr. Gifty Man has also reviewed this case and agrees with the diagnosis. ?? 8 2:22 PM CDT DERMATOPATHOLOGY LABORATORY Pathology/Cytology TISSUE SPECIMEN FROM SKIN / Unknown 04/01/2018 04/02/2018 11:55 AM CDT Miscellaneous samples (specimen) TISSUE SPECIMEN FROM SKIN / Unknown 04/01/2018 04/02/2018 11:55 AM CDT Jeramie Osullivan MD LAB - PATHOLOGY/CYTO LOGY ORDERABLES DERMATOPATHOLOGY LABORATORY [facility] - Department of Dermatology [address] [place] [address] documented in this encounter Visit Diagnoses Not on filedocumented in this encounter Care Teams Animal Care Taker Relationship Specialty Start Date End Date Umang Bah MD [address] [place] [address] PCP - General 10/20/08 04/27/24 Martha Gonsales DO [address] [place] [id number] PCP - General Family Medicine 04/28/24 documented as of this encounter
--- OUTSIDE RECORDS SUMMARY | 2024-10-18 15:54 | XMS_ITS | Encounter Summary ---
Author Organization [facility] Address [address] [place] [address] Care Team Providers Care Hand Ii Tube Bender Name Role Phone Martha Gonsales DO Primary Care Provider [phone] Encounter Details Date Type Department Care Team (Late st Contact Info) Description 10/18/2024 3:45 PM MECHANICAL EQUIPMENT SALES ENGINEER Office Visit [facility] Oncology and Hematology - [place] [address] [facility] [address] [place] [address] Ryan Carney MD [address] [place] [address] CLL (chronic lymphocytic leukemia) (CMS/HCC) (Primary Dx) Social History Tobacco Use Types Packs/Day Years Used Date Smoking Tobacco: Former Pipe Q uit: 1996 Smokeless Tobacco: Never Tobacco Cessation:Counseling Given: Not Answered Alcohol Use Standard Drinks/Week Comments Yes 7 (1 standard drink = 0.6 oz pur e alcohol) Sex and Gender Information Value Date Recorded Sex Assigned at Not on file Legal Sex Male 11:41 AM MECHANICAL EQUIPMENT SALES ENGINEER Gender Identity Not on file Sexual Orientation Not on file documented as of this encounter Last Filed Vital Signs Vital Sign Reading Time Taken Comments Blood Pressure 153/76 10/18/2024 3:21 PM MECHANICAL EQUIPMENT SALES ENGINEER Pulse 51 10/18/2024 3:19 PM MECHANICAL EQUIPMENT SALES ENGINEER Temperature 36.3 ??C (97.3 ??F) 10/18/2024 3:19 PM CS T Respiratory Rate 15 10/18/2024 3:19 PM MECHANICAL EQUIPMENT SALES ENGINEER Oxygen Saturation 96% 10/18/2024 3:19 PM MECHANICAL EQUIPMENT SALES ENGINEER Inhaled Oxygen Concentration - - Weight 92.3 kg (203 lb 6.4 oz) 10/18/2024 3:19 P M MECHANICAL EQUIPMENT SALES ENGINEER Height - - Body Mass Index 28.37 04/01/2023 3:30 PM CDT documented in this encounter Plan of Treatment Upcoming Encounters Date Type Department Care Team (Late st Contact Info) Description 02/07/2025 2:15 PM CDT Office Visit [facility] Oncology and Hematology [facility] [address] [facility] [address] [place] [address] Ryan Carney MD [address] [place] [address] Scheduled Orders Name Type Priority Associated Diagnoses Orde r Schedule CBC WITH DIFFERENTIAL Lab Stat CLL (chronic lymphocytic leukemia) (CMS/HCC) Expected: 02/07/2025, Expires: 10/18/2025 BASIC METABOLIC PANEL Lab Stat CLL (chronic lymphocytic leukemia) (CMS/HCC) Expected: 02/07/2025, Expires: 10/18/2025 documented as of this encounter Visit Diagnoses Diagnosis CLL (chronic lymphocytic leukemia) (CMS/HCC)- Primary Chronic lymphoid leukemia, without mention of having achieved remission documented in this encounter Care Teams Hand Ii Tube Bender Relationship Specialty Start Date End Date Martha Gonsales DO [address] [place] [phone] PCP - General Family Practice 11/25/22 documented as of this encounter
--- OUTSIDE RECORDS SUMMARY | 2024-10-18 15:54 | XMS_ITS | Encounter Summary ---
Author Organization [facility] Address [address] [place] [address] Care Team Providers Care Knife Operator Name Role Phone Umang Bah MD Primary Care Provider [phone] Martha Gonsales DO Primary Care Provider [phone] Encounter Details Date Type Department Care Team (Late st Contact Info) Description 11/26/[address] [facility] Care Pathology Lab [address] [place] [id number] John Rodrigues MD [facility] [place] [address] Illness, unspecified Social History Tobacco Use Types Packs/Day Years Used Date Smoking Tobacco: Former Smokeless Tobacco: Never Alcohol Use Standard Drinks/Week Comments Yes 0 (1 standard drink = 0.6 oz pur e alcohol) Sex and Gender Information Value Date Recorded Sex Assigned at Not on file Gender Identity Not on file Sexual Orientation Not on file documented as of this encounter Plan of Treatment Not on file documented as of this encounter Visit Diagnoses Diagnosis Illness, unspecified documented in this encounter Care Teams Knife Operator Relationship Specialty Start Date End Date Umang Bah MD [address] [place] [address] PCP - General 10/20/08 04/27/24 Martha Gonsales DO [address] [place] [address] PCP - General Family Medicine 04/28/24 documented as of this encounter
--- OUTSIDE RECORDS SUMMARY | 2024-10-18 15:54 | XMS_ITS | Clinical Summary ---
Author Organization [facility] [employer] Address [address] [place] [address] Care Team Providers Care Vaccine Specialist Name Role Phone Martha Gonsales DO Primary Care Provider Source Comments [facility],non-owned Affiliates and Associated Physician Practices is amultiple site organization consisting of ambulatory clinics and hospital sitesin [place], [place] and [place]. This disclosure is being madepursuant to the Care Everywhere program and may not contain all information available regarding this patient. Last updated 18.[facility] [employer] Allergies No known active allergies Medications * Be aware that medications may not be up to date on this document. Alwaysverify current medications with the patient. Medication Sig Dispensed Refills Start Date End Date Status atenolol (TENORMIN) 25 MG tablet Take 1 tablet by mouth once daily Active atorvastatin (LIPITOR) 10 MG tablet Take 1 tablet by mouth every other day 01/27/2018 Active tamsulosin (FLOMAX) 0.4 MG capsule Take 1 capsule by mouth once daily 01/26/2018 Active FIBER PO Take 3 tablets by mouth once daily Active ketoconazole (Nizoral) 2 % cream APPLY TO SOLES AND SIDES OF FEET AND TOES TWICE DAILY 03/22/2024 Active methylPREDNISolone (Medrol Dosepak) 4 MG tablet TAKE 6 TABLETS ON DAY 1 DIRECTED ON PACKAGE AND DECREASE BY 1 TAB EACH DAY FOR A TOTAL OF 6 DAYS 02/03/2024 Active omeprazole (PriLOSEC) 40 MG capsule Take 1 (one) capsule by mouth once daily 02/09/2024 Active zanubrutinib (Brukinsa) 80 MG capsule Take 2 (two) capsules by mouth 2 times daily 02/04/2024 Active Active Problems Problem Noted Date Diagnosed Date Melanoma in situ of scalp and neck 09/03/2013 Basal cell carcinoma of skin of scalp and neck 1 11/04/2012 Melanoma in situ of scalp 09/03/2013 Basal cell carcinoma, scalp/neck 09/03/2013 Family History Medical History Relation Name Comments Cancer - Skin, Non Melanoma Sister Relation Name Status Comments Sister Social History Tobacco Use Types Packs/Day Years Used Date Smoking Tobacco: Former Smokeless Tobacco: Never Alcohol Use Standard Drinks/Week Comments Yes 0 (1 standard drink = 0.6 oz pur e alcohol) Sex and Gender Information Value Date Recorded Sex Assigned at Not on file Gender Identity Not on file Sexual Orientation Not on file Last Filed Vital Signs Vital Sign Reading Time Taken Comments Blood Pressure 125/78 05/11/2018 9:24 AM CDT Pulse 47 05/11/2018 9:24 AM CDT Temperature - - Respiratory Rate - - Oxygen Saturation 93% 05/11/2018 9:24 AM CDT Inhaled Oxygen Concentration - - Weight 97.5 kg (215 lb) 05/11/2018 7:29 AM CDT Height 182.9 cm (6') 05/11/2018 7:29 AM CDT Body Mass Index 29.16 05/11/2018 7:29 AM CDT Plan of Treatment Health Maintenance Due Date Last Done Comments MEDICARE AWV ? 12 MONTHS 1940 DTAP/TDAP/TD VACCINES (1 - Tdap) 1957 PNEUMOCOCCAL VACCINE 50+ (1 of 1 - PCV) 1988 ZOSTER VACCINE (1 of 2) 1988 Respiratory Syncytial Virus (RSV) Vaccine Pt: or over 60 yrs (1 - 1-dose 75+ series) 2013 COVID-19 VACCINE ( - 2023-2 5 season) 2024 INFLUENZA VACCINE (#1) 2024 DEPRESSION SCREENING 09/22/2024 HEPATITIS B VACCINE Aged Out No longe r eligible based on patient's age to complete this topic HIB VACCINE Aged Out No longer eligi ble based on patient's age to complete this topic HPV VACCINE Aged Out No longer eligi ble based on patient's age to complete this topic MENINGOCOCCAL (Group B) VACCINE Aged Out No longer eligible based on patient's age to complete this topic MENINGOCOCCAL VACCINE Aged Out No marlon marisa eligible based on patient's age to complete this topic Care Teams Vaccine Specialist Relationship Specialty Start Date End Date Martha Gonsales DO [address] [place] [address] PCP - General Family Medicine 04/28/24
--- OUTSIDE RECORDS SUMMARY | 2024-10-18 15:54 | XMS_ITS | Encounter Summary ---
Author Organization [facility] Address [address] [place] [address] Care Team Providers Care Textile Screen Printer Name Role Phone Umang Bah MD Primary Care Provider [phone] Martha Gonsales DO Primary Care Provider [phone] Encounter Details Date Type Department Care Team (Late st Contact Info) Description 03/18/2024 Lab Requisition [facility] - DermPath Lab [address] [facility], [place] [address] Jeramie Osullivan MD [address] [place] [address] Social History Tobacco Use Types Packs/Day Years [...] Priority Date/Time Associated Diagnosis Comments DERMATOPATHOLOGY Routine 03/16/2024 12:0 0 AM CDT documented in this encounter Results * DERMATOPATHOLOGY (03/16/2024 12:00 AM CDT) Case Report Dermatopathology Report ? Case: [id number] ? Authorizing Provider: ??Jeramie Osullivan MD ?Collected: ? 03/16/2024 12:00 AM ? Ordering Location: ? [facility] - ??Received: ?03/18/2024 10:46 AM ? DermPath Lab ? Pathologist: ? Chasidy Espinosa MD ? Specimen: ?Skin, left chin ? 4 1:46 PM CDT DERMATOPATHOLOGY LABORATORY Final Diagnosis Specimen A. SKIN, left chin: BASAL CELL CARCINOMA, NODULAR TYPE (C44.319) 4 1:46 PM CDT DERMATOPATHOLOGY LABORATORY Clinical History R/O SCC 4 1:46 PM CDT DERMATOPATHOLOGY LABORATORY Gross Description Specimen A: Received is one formalin filled container labeled with the patient's name and designated left chin. The specimen consists of a shave biopsy measuring 10x9x2 mm. Jar 0. 4 1:46 PM CDT DERMATOPATHOLOGY LABORATORY Microscopic Description Specimen A. SKIN, left chin: Within the dermis there are aggregates of basaloid cells with a high nuclear to cytoplasmic ratio and peripheral palisading. 4 1:46 PM CDT DERMATOPATHOLOGY LABORATORY Disclaimer An external and internal positive and negative controls are appropriate for the histochemical, immunohistochemical and immunofluorescence stain(s) in this case (if any), except where stated explicitly. The performance characteristics of the stain(s) cited in this report were developed and its performance characteristic determined by the Dermatopathology Laboratory at [facility], directed by Dr. Su Man. These tests need not be, and therefore are not, approved by the [place] Food and Drug Administration. The tests are used for clinical purposes. Billing Codes Specimen Charges Stain Charges 98606 1 4 1:46 PM CDT DERMATOPATHOLOGY LABORATORY Embedded Images 4 1:46 PM CDT DERMATOPATHOLOGY LABORATORY Pathology/Cytolog y TISSUE SPECIMEN FROM SKIN / Unknown 03/16/2024 03/18/2024 10:46 AM CDT Jeramie Osullivan MD LAB - PATHOLOGY/CYTO LOGY ORDERABLES DERMATOPATHOLOGY LABORATORY [facility] Department of Dermatology [address], 3[address] [phone] documented in this encounter Visit Diagnoses Not on filedocumented in this encounter Care Teams Textile Screen Printer Relationship Specialty Start Date End Date Umang Bah MD [address] [place] [address] PCP - General 10/20/08 04/27/24 Martha Gonsales DO [address] [place] [address] PCP - General Family Medicine 04/28/24 documented as of this encounter
--- OUTSIDE RECORDS SUMMARY | 2024-10-18 15:54 | XMS_ITS | Encounter Summary ---
Author Organization [facility] Address [address] [facility] [place] [address] Care Team Providers Care Banana Ripening Room Supervisor Name Role Phone Umang Bah MD Primary Care Provider [phone] Martha Gonsales DO Primary Care Provider [phone] Encounter Details Date Type Department Care Team (Late st Contact Info) Description 10/15/[address] [facility] Care DermPath Lab [address] [facility], [place] [address] Jeramie Osullivan MD [address] [place] [address] Social History Tobacco Use Types [...] Priority Date/Time Associated Diagnosis Comments DERMATOPATHOLOGY Routine 10/13/2019 12:0 0 AM CLINICAL LABORATORY ASSISTANT documented in this encounter Results * DERMATOPATHOLOGY (10/13/2019 12:00 AM CLINICAL LABORATORY ASSISTANT) Case Report Dermatopathology Report ? Case: [id number] ? Authorizing Provider: ??Jeramie Osullivan MD ?Collected: ? 10/13/2019 12:00 AM ? Ordering Location: ? [facility] DermPath Lab ?Received: ?10/15/2019 07:49 AM ? Pathologist: ? Maki Velasco MD ? Specimens: ?? A) - Skin, left mid ext forearm ? B) - Skin, right upper back ? C) - Skin, right upper back inferior ? 0 10:49 AM [facility] DERMATOPATHOLOGY LABORATORY Final Diagnosis Specimen A. SKIN, left mid ext forearm: SQUAMOUS PROLIFERATION (D48.5) DERMAL FIBROSIS (L90.5) (see microscopic description and comment) Specimen B. SKIN, right upper back: BASAL CELL CARCINOMA, NODULAR TYPE (C44.519) NOT PRESENT AT SAMPLED MARGIN Specimen C. SKIN, right upper back inferior: BASAL CELL CARCINOMA, SUPERFICIAL MULTIFOCAL (C44.519) 0 10:49 AM [facility] DERMATOPATHOLOGY LABORATORY Clinical History A: R/O KA, SCC. B: R/O SCC, BCC. Check margins. C: R/O SCC, BCC. 0 10:49 AM [facility] DERMATOPATHOLOGY LABORATORY Gross Description Specimen A: Received is one formalin filled container labeled with the patient's name and designated left mid ext forearm. The specimen consists of a curettage and desiccation biopsy measuring 06m60y1qa. Jar 0. Specimen B: Received is one formalin filled container labeled with the patients name and designated right upper back. The specimen consists of a shave removal measuring 63a0l3pw. The margin is inked green. Jar 0. Specimen C: Received is one formalin filled container labeled with the patient's name and designated right upper back inferior. The specimen consists of a shave biopsy measuring 05l18f4ve. Jar 0. 0 10:49 AM [facility] DERMATOPATHOLOGY LABORATORY Microscopic Description Specimen A. SKIN, left mid ext forearm: Sections show an invagination of the epidermis marked by acanthosis with nuclear pleomorphism of keratinocytes involving nearly the full thickness of the epidermis. The underlying dermis is fibrotic, with occasional vertically oriented vessels and sparse lymphocytes. Additional deeper sections were obtained and reviewed. COMMENT: The histological differential diagnosis includes an irritated and inflamed benign keratosis, a regressing keratoacanthoma, and a hypertrophic actinic keratosis. Specimen B. SKIN, right upper back: Within the dermis there are aggregates of basaloid cells with a high nuclear to cytoplasmic ratio and peripheral palisading. This lesion is not present at the sampled margin of the specimen. Specimen C. SKIN, right upper back inferior: Attached to the undersurface of the epidermis, there are small aggregates of basaloid cells with a high nuclear to cytoplasmic ratio and peripheral palisading. 0 10:49 AM [facility] DERMATOPATHOLOGY LABORATORY Disclaimer An external and internal positive and negative controls are appropriate for the histochemical, immunohistochemical and immunofluorescence stain(s) in this case (if any), except where stated explicitly. The performance characteristics of the stain(s) cited in this report were developed and its performance characteristic determined by the Dermatopathology Laboratory at [facility], directed by Dr. Su Man. These tests need not be, and therefore are not, approved by the [place] Food and Drug Administration. The tests are used for clinical purposes. Billing Codes Specimen Charges Stain Charges 23238 78106 28922 1 1 1 0 10:49 AM CLINICAL LABORATORY ASSISTANT DERMATOPATHOLOGY LABORATORY Embedded Images 0 10:49 AM CLINICAL LABORATORY ASSISTANT DERMATOPATHOLOGY LABORATORY Pathology/Cytology TISSUE SPECIMEN FROM SKIN / Unknown 10/13/2019 10/15/2019 7:49 AM CLINICAL LABORATORY ASSISTANT Miscellaneous samples (specimen) TISSUE SPECIMEN FROM SKIN / Unknown 10/13/2019 10/15/2019 7:49 AM CLINICAL LABORATORY ASSISTANT Miscellaneous samples (specimen) TISSUE SPECIMEN FROM SKIN / Unknown 10/13/2019 10/15/2019 7:49 AM CLINICAL LABORATORY ASSISTANT Jeramie Osullivan MD LAB - PATHOLOGY/CYTO LOGY ORDERABLES DERMATOPATHOLOGY LABORATORY [facility] - Department of Dermatology [address] [place] [address] [address] [phone] documented in this encounter Visit Diagnoses Not on filedocumented in this encounter Care Teams Banana Ripening Room Supervisor Relationship Specialty Start Date End Date Umang Bah MD [address] [place] [address] PCP - General 10/20/08 04/27/24 Martha Gonsales DO [address] [place] [address] PCP - General Family Medicine 04/28/24 documented as of this encounter
--- OUTSIDE RECORDS SUMMARY | 2024-10-18 15:54 | XMS_ITS | Referral Summary ---
Author Organization [facility] [employer] Address [address] [place] [address] Care Team Providers Care Civil Transportation Engineer Name Role Phone Martha Gonsales DO Primary Care Provider [phone] Source Comments [facility],non-owned Affiliates and Associated Physician Practices is amultiple site organization consisting of ambulatory clinics and hospital sitesin [place], [place], [place] and [place]. This disclosure is being madepursuant to the Care Everywhere program and may not contain all information available regarding this patient. Last updated 18.[facility] [employer] Allergies No known active allergies Medications * [...] scalp 09/03/2013 Basal cell carcinoma, scalp/neck 09/03/2013 Social History Tobacco Use Types Packs/Day Years [...] 05/11/2018 7:29 AM CDT Plan of Treatment Not on file Care Teams Civil Transportation Engineer Relationship Specialty Start Date End Date Martha Gonsales DO [address] [address] PCP - General Family Medicine 04/28/24
--- OUTSIDE RECORDS SUMMARY | 2024-10-18 15:54 | XMS_ITS | Clinical Summary ---
Author Organization [facility] Address [address] [facility] [place] [address] Care Team Providers Care Director Weights And Measures Name Role Phone Martha Gonsales Primary Care Provider [phone] Allergies No known active allergies Medications atenoloL (TENORMIN) 25 mg tablet Take 25 mg by mouth daily. Active atorvastatin (LIPITOR) 10 mg tablet Take 10 mg by mouth daily. Active tamsulosin (FLOMAX) 0.4 mg capsule Take 0.4 mg by mouth daily. Active omeprazole (PriLOSEC) 40 mg Capsule, Delayed Release(E.C.) Take 1 Capsule by mouth daily. 4 Active zanubrutinib 80 mg capsule Take 2 Capsules (160 mg) by mouth 2 times daily. 120 Capsule 4 5 Active zanubrutinib 80 mg capsule Take 2 Capsules (160 mg) by mouth 2 times daily. 120 Capsule 4 09/16/2024 2:50 PM PARTY COORDINATOR 4 09/26/19 25 Discontinu ed(Reorder ) Active Problems No known active problems Encounters Date Type Department Care Team Description 10/18/2024 3:45 PM PARTY COORDINATOR Office Visit [facility] [place] [place] [address] Ryan Carney MD CLL (chronic lymphocytic leukemia) (CMS/HCC) (Primary Dx) 10/14/2024 External Device Data STL ABSTRACTION Provider, Abstract 09/28/2024 Specialty Pharmacy [facility] [address] [place] [address] Shruti Vasquez, PHARMACIST 09/26/2024 Refill [facility] [place] [address] [place] [address] Ryan Carney MD 09/24/2024 Specialty Pharmacy [facility] [address] [place] [address] Olga Mari, PHARMACIST Specialty Pharmacy Financial Assistance 09/03/2024 Specialty Pharmacy [facility] [address] [place] [phone] Prachi Prakash, PHARMACIST Specialty Pharmacy Refill Coordination 08/09/2024 Specialty Pharmacy [facility] [address] [place] [phone] Olga Mari, PHARMACIST Specialty Pharmacy Refill Coordination from Last 3 Months Family History Medical History Relation Name Comments No Known Problems Daughter 1 No Known Problems Daughter 2 No Known Problems Daughter 3 No Known Problems Daughter 4 Colon Cancer Father Heart Disease Sister Relation Name Status Comments Brother Alive Daughter 1 Alive Daughter 2 Alive Daughter 3 Alive Daughter 4 Alive Father Mother Sister Alive Social History Tobacco Use Types Packs/Day Years Used Date Smoking Tobacco: Former Pipe Q uit: 1996 Smokeless Tobacco: Never Tobacco Cessation:Counseling Given: Not Answered Alcohol Use Standard Drinks/Week Comments Yes 7 (1 standard drink = 0.6 oz pur e alcohol) Sex and Gender Information Value Date Recorded Sex Assigned at Not on file Legal Sex Male 11:41 AM PARTY COORDINATOR Gender Identity Not on file Sexual Orientation Not on file Last Filed Vital Signs Vital Sign Reading Time Taken Comments Blood Pressure 153/76 10/18/2024 3:21 PM PARTY COORDINATOR Pulse 51 10/18/2024 3:19 PM PARTY COORDINATOR Temperature 36.3 ??C (97.3 ??F) 10/18/2024 3:19 PM CS T Respiratory Rate 15 10/18/2024 3:19 PM PARTY COORDINATOR Oxygen Saturation 96% 10/18/2024 3:19 PM PARTY COORDINATOR Inhaled Oxygen Concentration - - Weight 92.3 kg (203 lb 6.4 oz) 10/18/2024 3:19 P M PARTY COORDINATOR Height 180.3 cm (5' 11 ) 04/01/2023 3:30 PM CDT Body Mass Index 28.37 04/01/2023 3:30 PM CDT Plan of Treatment Upcoming Encounters Date Type Department Care Team (Late st Contact Info) Description 02/07/2025 2:15 PM CDT Office Visit [facility] [address] [facility] [address] [place] [address] Ryan Carney MD [address] [facility] [address] [place] [address] Health Maintenance Due Date Last Done Comments DTAP/TDAP/TD VACCINES (1 - Tdap) 1959 PNEUMOCOCCAL VACCINE 65+ YEARS (1 of 2 - PCV) 08/03/19 57 Traditional Medicare (ACO) Annual Wellness Visit 08/03 ZOSTER VACCINE (1 of 2) 1957 RSV VACCINE (60+ or ) (1 - 1-dose 75+ series) 2013 INFLUENZA VACCINE (#1) 2024 Insurance MEDICARE PART A AND B [facility] [id number] [place] [address] [facility] [employer] Medicare Part D RX [employer] Medicare Part D Care Teams Director Weights And Measures Relationship Specialty Start Date End Date Martha Gonsales DO [address] [place] [address] PCP - General Family Practice 11/25/22
--- OUTSIDE RECORDS SUMMARY | 2024-10-18 15:54 | XMS_ITS | Continuity of Care Document ---
Author Organization [facility] Address [address] [place] [address] Phone Care Team Providers Care Shrimp Cleaner Name Role Phone Osman Schilling Unavailable Unavailable Procedures Procedure Date Office/outpatient Visit, Est Eye Exam & Treatment No Script Eye Exam & Treatment Visual Functional Status Assessed Refraction Advance Directives Directive Yes / No Effective Date File Name No Information Encounters Encounter Description Practice Location Reason(s) For Visit Diagnoses Date Provider Providers Copied on Encounter Office/outpat ient Visit, Est [facility], [address], [place], [place], [id number], [place] tel:[phone] [facility] No Information [address]. [address], [place], [place], [facility], . tel:[phone] [facility], [address], [place], [place], [id number], [place] tel:[phone] [facility] No Information 9 Shakir Brewer. [address], [place], [place], [facility], [place]. tel:[phone] [facility], [address], [place], [place], [id number], tel:[phone] [facility] No Information 7[address] Shakir Brewer. [address] , [address], [place], [address], [place]. tel:[phone] Family History Family Member Type Diagnosis Age At Onset No Information Payers Payer name Insurance type Covered green party ID Authoriza tion(s) Medicare [facility] [id number] [facility] Commercial [id number] Social History Type Description Quantity Date Captured [...]
--- OUTSIDE RECORDS SUMMARY | 2024-10-18 15:54 | XMS_ITS | Encounter Summary ---
Author Organization [facility] Address [address] [facility] [place] [address] Care Team Providers Care Hematologist Oncologist Name Role Phone Umang Bah MD Primary Care Provider [phone] Martha Gonsales DO Primary Care Provider [phone] Encounter Details Date Type Department Care Team (Late st Contact Info) Description 04/19/2020 Lab Requisition [facility] Care DermPath Lab [address] [facility] [place] [address] Jeramie Osullivan MD [address] [place] [address] Social History Tobacco Use Types [...] Priority Date/Time Associated Diagnosis Comments DERMATOPATHOLOGY Routine 04/18/2020 12:0 0 AM CDT documented in this encounter Results * DERMATOPATHOLOGY (04/18/2020 12:00 AM CDT) Case Report Dermatopathology Report ? Case: [id number] ? Authorizing Provider: ??Jeramie Osullivan MD ?Collected: ? 04/18/2020 12:00 AM ? Ordering Location: ? [facility] DermPath Lab ?Received: ?04/19/2020 01:16 PM ? Pathologist: ? Haritha Man MD ? Specimen: ?Skin, right mid ext FA ? 0 5:20 PM CDT DERMATOPATHOLOGY LABORATORY Final Diagnosis Specimen A. SKIN, right mid ext FA: CYSTIC BENIGN VERRUCOUS KERATOSIS, INFLAMED (L82.1) NOT PRESENT AT SAMPLED MARGIN 0 5:20 PM CDT DERMATOPATHOLOGY LABORATORY Clinical History R/O SCC, other neoplasm. 0 5:20 PM CDT DERMATOPATHOLOGY LABORATORY Gross Description Specimen A: Received is one formalin filled container labeled with the patient's name and designated right mid ext FA. The specimen consists of a punch biopsy measuring [id number], bisected. Jar 0. 0 5:20 PM CDT DERMATOPATHOLOGY LABORATORY Microscopic Description Specimen A. SKIN, right mid ext FA: Sections show hyperkeratosis, papillomatosis, hypergranulosis, and acanthosis. Inflammatory cells are present within the dermis. These histological findings can be seen in a verruca vulgaris or a seborrheic keratosis. This lesion is not present at the sampled margin of the specimen. 0 5:20 PM CDT DERMATOPATHOLOGY LABORATORY Disclaimer An external and internal positive and negative controls are appropriate for the histochemical, immunohistochemical and immunofluorescence stain(s) in this case (if any), except where stated explicitly. The performance characteristics of the stain(s) cited in this report were developed and its performance characteristic determined by the Dermatopathology Laboratory at [facility], directed by Dr. Su Man. These tests need not be, and therefore are not, approved by the [place] Food and Drug Administration. The tests are used for clinical purposes. Billing Codes Specimen Charges Stain Charges 80127 1 0 5:20 PM CDT DERMATOPATHOLOGY LABORATORY Embedded Images 0 5:20 PM CDT DERMATOPATHOLOGY LABORATORY Pathology/Cytolog y TISSUE SPECIMEN FROM SKIN / Unknown 04/18/2020 04/19/2020 1:16 PM CDT Jeramie Osullivan MD LAB - PATHOLOGY/CYTO LOGY ORDERABLES DERMATOPATHOLOGY LABORATORY [facility] - Department of Dermatology [place]/[address] [phone] documented in this encounter Visit Diagnoses Not on filedocumented in this encounter Care Teams Hematologist Oncologist Relationship Specialty Start Date End Date Umang Bah MD [address] [place] [address] PCP - General 10/20/08 04/27/24 Martha Gonsales DO [address] [place] [address] PCP - General Family Medicine 04/28/24 documented as of this encounter
--- OUTSIDE RECORDS SUMMARY | 2024-10-18 15:54 | XMS_ITS | Encounter Summary ---
Author Organization [facility] Address [address] [facility] [place] [address] Care Team Providers Care Crate Builder Name Role Phone Umang Bah MD Primary Care Provider [phone] Martha Gonsales DO Primary Care Provider [phone] Encounter Details Date Type Department Care Team (Late st Contact Info) Description 12/02/2019 Lab Requisition [facility] Care DermPath Lab [address] [facility], [place] [phone] Jeramie Osullivan MD [address] [place] [address] Social History Tobacco Use Types [...] Priority Date/Time Associated Diagnosis Comments DERMATOPATHOLOGY Routine 12/01/2019 12:0 0 AM CDT documented in this encounter Results * DERMATOPATHOLOGY (12/01/2019 12:00 AM CDT) Case Report Dermatopathology Report ? Case: [id number] ? Authorizing Provider: ??Jeramie Osullivan MD ?Collected: ? 12/01/2019 12:00 AM ? Ordering Location: ? [facility] DermPath Lab ?Received: ?12/02/2019 12:48 PM ? Pathologist: ? Cassia Espinosa MD ? Specimen: ?Skin, right upper back inferior ? 0 3:40 PM CDT DERMATOPATHOLOGY LABORATORY Final Diagnosis Specimen A. SKIN, right upper back inferior: DERMAL SCAR RESIDUAL BASAL CELL CARCINOMA NOT IDENTIFIED (L90.5) 0 3:40 PM CDT DERMATOPATHOLOGY LABORATORY Clinical History Bx proven BCC. Previous Bx: [id number]. 0 3:40 PM CDT DERMATOPATHOLOGY LABORATORY Gross Description Specimen A: Received is one formalin filled container labeled with the patient's name and designated right upper back inferior. The specimen consists of a curettage and desiccation biopsy measuring [id number]. Jar 0. 0 3:40 PM CDT DERMATOPATHOLOGY LABORATORY Microscopic Description Specimen A. SKIN, right upper back inferior: There are fibroblasts and collagen bundles oriented parallel to the skin surface. There are elongated blood vessels, some of which are oriented perpendicular to the skin surface. No basal cell carcinoma is identified. 0 3:40 PM CDT DERMATOPATHOLOGY LABORATORY Disclaimer An external and internal positive and negative controls are appropriate for the histochemical, immunohistochemical and immunofluorescence stain(s) in this case (if any), except where stated explicitly. The performance characteristics of the stain(s) cited in this report were developed and its performance characteristic determined by the Dermatopathology Laboratory at [facility], directed by Dr. Su Man. These tests need not be, and therefore are not, approved by the [place] Food and Drug Administration. The tests are used for clinical purposes. Billing Codes Specimen Charges Stain Charges 17474 1 0 3:40 PM CDT DERMATOPATHOLOGY LABORATORY Embedded Images 0 3:40 PM CDT DERMATOPATHOLOGY LABORATORY Pathology/Cytolog y TISSUE SPECIMEN FROM SKIN / Unknown 12/01/2019 12/02/2019 12:48 PM CDT Jeramie Osullivan MD LAB - PATHOLOGY/CYTO LOGY ORDERABLES Performing Organization Address [facility]/State/[facility] Co de Phone Number DERMATOPATHOLOGY LABORATORY [facility] - Department of Dermatology [address] [place] [address] 5th Floor Lab [address] [phone] documented in this encounter Visit Diagnoses Not on filedocumented in this encounter Care Teams Crate Builder Relationship Specialty Start Date End Date Umang Bah MD [address] [place] [address] PCP - General 10/20/08 04/27/24 Martha Gonsales DO [address] [place] [address] PCP - General Family Medicine 04/28/24 documented as of this encounter
--- OUTSIDE RECORDS SUMMARY | 2024-10-18 15:54 | XMS_ITS | Encounter Summary ---
Author Organization [facility] Address [address] [place] [address] Care Team Providers Care Stitch Bonding Machine Tender Helper Name Role Phone Umang Bah MD Primary Care Provider [phone] Martha Gonsales DO Primary Care Provider [phone] Encounter Details Date Type Department Care Team (Late st Contact Info) Description 11/26/2022 Lab Requisition [facility] Care Pathology Lab [address] [place] [id number] John Rodrigues MD [facility] [place] [address] Illness, unspecified Social History Tobacco Use Types [...] Procedure Name Priority Date/Time Associated Diagnosis Comments PATHOLOGY TISSUE Routine 11/20/2022 1:05 PM CO OP Illness, unspecified documented in this encounter Results * PATHOLOGY TISSUE (11/20/2022 1:05 PM CO OP) Case Report Surgical Pathology Report ? Case: [id number] ? Authorizing Provider: ??John Rodrigues MD ?Collected: ? 11/20/2022 01:05 PM ? Ordering Location: ? [facility] ? Received: ?11/26/2022 04:00 PM ? Pathologist: ? Elinor Avery Mai, ? Specimen: ?Lymph Node, Left Axilla lymph node ? 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 There are a few admixed larger cells morphologically consistent with prolymphocytes and paraimmunoblasts but no areas of large cell transformation, as sampled. Properly controlled immunohistochemical stains show the following: CD3: Stains background T cells CD20: Diffusely positive CD5: Stains T cells, no obvious coexpression in B cells CD10: Negative, highlights stromal cells CD23: Patchy expression with variable intensity SOX11: Negative SOX10: No metastatic melanoma (history of melanoma noted) COMMENT: Although CD5 appeared negative by immunohistochemistry, the concurrent flow cytometry ([facility] [id number]) showed CD5 expression. The morphology and CD23 expression support small lymphocytic lymphoma/chronic lymphocytic leukemia. The absence of SOX11 argues against mantle cell lymphoma. There is no evidence of large cell transformation, as sampled. 11/28/2022 1:06 PM [facility] Clinical History 11/28/2022 1:06 PM [facility] Materials Received Received are five slide(s) and one block (A1) labeled [id number] along with a copy of the outside pathology report. [place] [address]. All original materials are returned to the referring institution, along with a copy of our final report. 11/28/2022 1:06 PM [facility] Disclaimer The performance characteristics of all immunohistochemical and indirect immunofluorescence stains (if any) cited in this report were determined by the [facility] of [facility]. Some of these tests were developed by our own laboratory and have not been cleared or approved by the US Food and Drug Administration. The FDA does not require this test to go through premarket FDA review. These tests are used for clinical purposes. They should not be regarded as investigational or for research. This laboratory is certified under the Clinical Laboratory Improvement Amendments (CLIA) as qualified to perform high complexity clinical laboratory testing. This case has been personally reviewed and interpreted by the attending (teaching) pathologist. 11/28/2022 1:06 PM [facility] Embedded Images 11/28/2022 1:06 PM [facility] Pathology/Cytolo gy ENTIRE LYMPH NODE / Unknown 11/20/2022 1:05 PM CO OP 11/26/2022 4:00 PM CO OP John Rodrigues MD LAB - PATHOLOGY/CYTO LOGY ORDERABLES [facility] [address] [facility] [facility] [place], [place] [id number] [place] [address] documented in this encounter Visit Diagnoses Diagnosis Illness, unspecified documented in this encounter Care Teams Stitch Bonding Machine Tender Helper Relationship Specialty Start Date End Date Umang Bah MD [address] [place] [address] PCP - General 10/20/08 04/27/24 Martha Gonsales DO [address] [place] [address] PCP - General Family Medicine 04/28/24 documented as of this encounter
--- OUTSIDE RECORDS SUMMARY | 2024-10-18 15:54 | XMS_ITS | Clinical Summary ---
Author Organization [facility] Address [address] [address] Phone Care Team Providers Care Optical Mechanic Name Role Phone Umang Bah MD Primary Care Provider [phone] Allergies No known active allergies Medications atenolol (TENORMIN) 25 MG Tablet Take 1 Tab by mouth. Active atorvastatin (LIPITOR) 10 MG Tablet 10/22/2018 Active [place]-3 Fatty Acids (FISH OIL) 1200 MG Capsule Take 1 Cap by mouth. Active tamsulosin (FLOMAX) 0.4 MG Capsule 11/11/2018 Active Fiber Powder Take 3 Tabs by mouth. Active Family History Medical History Relation Name Comments Colon Cancer Father No Known Problems Mother Relation Name Status Comments Father Mother Social History Tobacco Use Types Packs/Day Years Used Date Smoking Tobacco: Former Cigarettes Pipe Smokeless Tobacco: Never Tobacco Cessation:Counseling Given: Yes Alcohol Use Standard Drinks/Week Comments Yes 7 (1 standard drink = 0.6 oz pur e alcohol) one a day AUDIT-C Answer Date Recorded Frequency of Alcohol Consumption Not on file 01/11/2019 Average Number of Drinks 1 or 2 019 Frequency of Binge Drinking Not on file 12/22 Sex and Gender Information Value Date Recorded Sex Assigned at Not on file Legal Sex Male 9:00 PM CDT Gender Identity Not on file Sexual Orientation Not on file 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 Not on file Not on oli e Not on file Last Filed Vital Signs Vital Sign Reading Time Taken Comments Blood Pressure 118/78 01/11/2019 1:57 PM CDT Pulse 54 01/11/2019 1:57 PM CDT Temperature 36.3 ??C (97.4 ??F) 01/11/2019 1:57 PM CD T Respiratory Rate 16 01/11/2019 1:57 PM CDT Oxygen Saturation 95% 01/11/2019 1:57 PM CDT Inhaled Oxygen Concentration - - Weight 100.8 kg (222 lb 3.2 oz) 01/11/2019 1:57 PM CDT Height 180.3 cm (5' 11 ) 01/11/2019 1:57 PM CDT Body Mass Index 30.99 01/11/2019 1:57 PM CDT Plan of Treatment Health Maintenance Due Date Last Done Comments Hepatitis C Virus (HCV) Screening 1940 TdaP Immunization 1940 Pneumococcal Immunization (5 0+ years) (1 of 1 - PCV) 1988 Zoster Immunization (1 of 2) 1988 Respiratory Syncytial Virus (RSV) Immunization (Adult) (1 - 1-dose 75+ series) 2013 Influenza Immunization (#1) 2024 07/22/2018 SARS-COV-2 Immunization ( season) 2024 07/06/2021, 12/08/2020, 11/17/2020 Hepatitis B Immunization Aged Out No longer eligible based on patient's age to complete this topic Meningococcal Immunization (ACWY) Aged Out No longer eligible b ased on patient's age to complete this topic Rotavirus Immunization Aged Out No lo nger eligible based on patient's age to complete this topic Insurance MEDICARE [facility] Care Teams Optical Mechanic Relationship Specialty Start Date End Date Umang Bah MD [address] [place] [address] PCP - General Family Medicine 10/02/18
--- OUTSIDE RECORDS SUMMARY | 2024-10-18 15:54 | XMS_ITS | Patient Health Summary ---
Author Organization [facility] Address [address] [place] [address] Care Team Providers Care Technology Project Manager Name Role Phone Martha Gonsales DO Primary Care Provider [phone] Note from [facility],non-owned Affiliates and Associated Physician Practices is amultiple site organization consisting of ambulatory clinics and hospital sitesin [place], [place], [place] and [place]. This disclosure is being madepursuant to the Care Everywhere program and may not contain all information available regarding this patient. Last updated 18.[facility] Allergies No known active allergies Medications * Be aware that medications may not be up to date on this document. Alwaysverify current medications with the patient. * atenolol (TENORMIN) 25 MG tablet Take 1 tablet by mouth once daily * atorvastatin (LIPITOR) 10 MG tablet(Started 01/27/2018) Take 1 tablet by mouth every other day * tamsulosin (FLOMAX) 0.4 MG capsule(Started 01/26/2018) Take 1 capsule by mouth once daily * FIBER PO Take 3 tablets by mouth once daily * ketoconazole (Nizoral) 2 % cream(Started 03/22/2024) APPLY TO SOLES AND SIDES OF FEET AND TOES TWICE DAILY * methylPREDNISolone (Medrol Dosepak) 4 MG tablet(Started 02/03/2024) TAKE 6 TABLETS ON DAY 1 DIRECTED ON PACKAGE AND DECREASE BY 1 TAB EACH DAY FOR A TOTAL OF 6 DAYS * omeprazole (PriLOSEC) 40 MG capsule(Started 02/09/2024) Take 1 (one) capsule by mouth once daily * zanubrutinib (Brukinsa) 80 MG capsule(Started 02/04/2024) Take 2 (two) capsules by mouth 2 times daily Active Problems Problem Noted Date Diagnosed Date [...] Mass Index 29.16 05/11/2018 7:29 AM CDT Procedures * IL INTMD WND REPAIR FACE,FACIAL 2.5-5(Performed 04/28/2024) Performed for Basal cell carcinoma (BCC) of chin * [place] CHMSRG MOHS MG TQ H/N/H/F/G 1ST STAG 5 BLOC(Performed 04/28/2024) Performed for Basal cell carcinoma (BCC) of chin * DERMATOPATHOLOGY(Performed 03/16/2024) * PATHOLOGY TISSUE(Performed 11/20/2022) Performed for Illness, unspecified * DERMATOPATHOLOGY(Performed 04/18/2020) * DERMATOPATHOLOGY(Performed 12/01/2019) * DERMATOPATHOLOGY(Performed 10/13/2019) * IL CHMSRG MOHS MG TQ H/N/H/F/G 1ST STAG 5 BLOC(Performed 05/12/2018) Performed for Basal cell carcinoma (BCC) of right lateral cheek * IL REPR CMPL WND HEAD,FAC,HAND 2.6-7.5(Performed 05/12/2018) Performed for Basal cell carcinoma (BCC) of right lateral cheek * IL REP,SKIN,SCALP/EXTREM+5CM/<(Performed 04/25/2018) Performed for Melanoma of upper arm, right (HCC) * IL REPR CMPL WND SCALP,EXTR 2.6-7.5(Performed 04/25/2018) Performed for Melanoma of upper arm, right (HCC) * IL EXC SKIN MALIG 3.1-4CM TRUNK,ARM,LEG(Performed 04/25/2018) Performed for Melanoma of upper arm, right (HCC) * DERMATOPATHOLOGY(Performed 04/24/2018) Performed for Melanoma of upper arm, right (HCC) * DERMATOPATHOLOGY(Performed 04/01/2018) * DERMATOPATHOLOGY(Performed 08/21/2017) * DERMATOPATHOLOGY(Performed 01/08/2017) * DERMATOPATHOLOGY(Performed 03/06/2016) * DERMATOPATHOLOGY(Performed 03/06/2016) * DERMATOPATHOLOGY(Performed 11/29/2015) * DERMATOPATHOLOGY(Performed 10/04/2013) * PATHOLOGY/GENETICS HISTORICAL-ONBASE(Performed 10/04/2013) * PATHOLOGY/GENETICS HISTORICAL-ONBASE(Performed 10/04/2013) * DERMATOPATHOLOGY(Performed 08/10/2013) Results * IL CHMSRG MOHS MG TQ H/N/H/F/G 1ST STAG 5 BLOC, IL INTMD WND REPAIR FACE,FACIAL 2.5-5 (04/28/2024 3:34 PM CDT) Narrative Deanna Mckeon MD - 04/28/2024 3:34 PM CDT Deanna Mckeon MD ? 05/04/2024 ??6:16 PM Mohs Micrographic Surgery Operative Note Procedure: Mohs micrographic surgery Date of service: 04/28/2024 Location: Left chin Preop diagnosis: Basal cell carcinoma Postop diagnosis: Basal cell carcinoma Mohs AUC score: 8 Number of stages: 1 Preop size: 0.5x0.5 cm Postop size: 2.1x2.1 cm Depth of final defect: adipose Previous dermpath accession #: [id number] Repair type: intermediate Mohs accession #: [id number] Surgeon and Pathologist: Deanna Mckeon MD served as both surgeon and pathologist. No other physician was involved in the cancer removal or pathology interpretation. Assistants: N/A Indications for Mohs Surgery Removal of the patient's tumor is complicated by the following clinical features: Clinical area critical for tissue conservation (Area H: central face, eyelids, eyebrows, nose, lips, chin, ear, periauricular, yazidi, genitalia, hands, feet, ankles, nail units and areola). Based on my medical judgement, Mohs surgery is the most appropriate treatment for this cancer compared to other treatments. I discussed alternative treatments to Mohs surgery and specifically discussed the risks and benefits of curettage, excision with permanent sections, and foregoing treatment. The rationale for Mohs was explained to the patient and consent was obtained. The risks, benefits and alternatives to therapy were discussed in detail. Specifically, the risks of infection, scarring, bleeding, prolonged wound healing, incomplete removal, allergy to anesthesia, nerve injury and recurrence were addressed. Prior to the procedure, the treatment site was clearly identified and confirmed by the patient. All components of [place] Protocol/PAUSE Rule completed. STAGE I: The patient was placed on the operating table. The cancer was identified and outlined. The entire surgical field was prepped with hibiclens. The surgical site was anesthetized using Lidocaine 1% with epinephrine 1:100,000 buffered with sodium bicarbonate 8.4% in a 1:10 ratio.The area of clinically apparent tumor was debulked with a 15 blade. The layer of tissue was then surgically excised using a #15 blade and was then transferred onto a specimen sheet maintaining the orientation of the specimen. Hemostasis was obtained using monopolar electrodesiccation. The wound site was then covered with a dressing while the tissue samples were processed for examination. The specimen was oriented, mapped and divided. Each section was then inked and processed in the Mohs lab using the Mohs protocol and submitted for frozen section. The histopathologic sections were reviewed by the surgeon in conjunction with the reference map. Total blocks: 1 Total slides: 5 Frozen sections were examined by the surgeon. No additional tumor was identified. No additional histologic findings appreciated. Cell morphology: N/A. No tumor seen at the margin. Pathological pattern: N/A. No tumor seen. Depth of invasion: N/A. No tumor seen. Scar tissue: Not Present Perineural invasion: Not Present Inflammation obscuring possible tumor presence: Not Present [facility] CLIA # [id number] Mohs clinical genetics laboratory chief: Deanna Mckeon MD REPAIR: Intermediate Primary Surgeon: Deanna Mckeon MD Phlebotomy Services Representative: N/A Repair Size: 4.2 cm Sutures: 4-0 monocryl, 5-0 fast absorbing gut The defect was identified and a marking pen was used to plan the repair. The area was infiltrated with Lidocaine 1% with epinephrine 1:100,000 buffered with sodium bicarbonate 8.4% in a 1:10 ratio, prepped with hibiclens and draped with sterile towels. The wound was debeveled and undermined widely. Cones were excised within relaxed skin tension lines on both sides of the defect. Hemostasis was obtained using monopolar electrodesiccation. The dermis and subcutaneous tissue were then approximated using buried vertical mattress sutures. Percutaneous simple running sutures were carefully placed for maximum eversion and meticulous wound edge approximation. Careful attention was paid to avoid distorting any nearby free margins. The wound was cleansed with saline and ointment was applied along the wound surface. A sterile pressure dressing was applied. Wound care instructions were given verbally and in writing. The patient left the operating suite in stable condition. Patient was informed that additional refinement of the resulting surgical scar may be used as a second stage of this reconstruction. No postoperative medications were prescribed. The patient will follow up with their primary workforce development program director. ?? Dr. Mckeon performed the entire surgery, and documentation used to initiate this operative report. I entered the information in our [employer] DocFlowsheet with the information provided by Dr. Mckeon on her handwritten, paper format, surgical worksheet, which was then used to initiate the create of this note. Dr. Mckeon then reviewed and edited the note as needed to complete the note. Yamileth Tolentino ??MA I have reviewed the note, edited it as necessary and performed the entire procedure. Deanna Mckeon MD Conciliation Court Judge 04/28/2024 Deanna Mckeon MD PROCEDURE/MINOR SURG ICAL ORDERABLES * DERMATOPATHOLOGY (03/16/2024 12:00 AM CDT) Only the most recent of13 resultswithin the time period is included. Case Report Dermatopathology Report ? Case: [id number] ? Authorizing Provider: ??Jeramie Osullivan MD ?Collected: [...] shave biopsy measuring 10x9x2 mm. Jar 0. 1:46 PM CDT DERMATOPATHOLOGY LABORATORY Microscopic Description Specimen A. SKIN, left chin: Within the dermis there are aggregates of basaloid cells with a high nuclear to cytoplasmic ratio and peripheral palisading. 1:46 PM CDT DERMATOPATHOLOGY LABORATORY Disclaimer An external and internal positive and negative controls are appropriate for the histochemical, immunohistochemical and immunofluorescence stain(s) in this case (if any), except where stated explicitly. The performance characteristics of the stain(s) cited in this report were developed and its performance characteristic determined by the Dermatopathology Laboratory at [facility], directed by Dr. Su Man. These tests need not be, and therefore are not, approved by the [place] Food and Drug Administration. The tests are used for clinical purposes. Billing Codes Specimen Charges Stain Charges 28954 1 1:46 PM CDT DERMATOPATHOLOGY LABORATORY Embedded Images 1:46 PM CDT DERMATOPATHOLOGY LABORATORY Pathology/Cytolog y TISSUE SPECIMEN FROM SKIN / Unknown 03/16/2024 03/18/2024 10:46 AM CDT Jeramie Osullivan MD LAB - PATHOLOGY/CYTO LOGY ORDERABLES Performing Organization Address City/State/[facility] Co de Phone Number DERMATOPATHOLOGY LABORATORY [facility] Department of Dermatology [address], [address] [phone] * PATHOLOGY TISSUE (11/20/2022 1:05 PM SOFTWARE TESTING SPECIALIST) Case Report Surgical Pathology Report ? Case: [id number] ? Authorizing Provider: ??John Rodrigues MD ?Collected: ? 11/20/2022 01:05 PM ? Ordering Location: ? [facility] Lab ? Received: ?11/26/2022 04:00 PM ? Pathologist: ? Elinor Avery Mai, DO ? Specimen: ?Lymph Node, Left Axilla lymph node ? 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 The morphology and CD23 expression support small lymphocytic lymphoma/chronic lymphocytic leukemia. The absence of SOX11 argues against mantle cell lymphoma. There is no evidence of large cell transformation, as sampled. 11/28/2022 1:06 PM [facility] Clinical History 11/28/2022 1:06 PM [facility] Materials Received Received are five slide(s) and one block (A1) labeled [id number] along with a copy of the outside pathology report. The materials originate from [facility], [place] [address], [place] [address]. All original materials are returned to the referring institution, along with a copy of our final report. 11/28/2022 1:06 PM [facility] Disclaimer The performance characteristics of all immunohistochemical and indirect immunofluorescence stains (if any) cited in this report were determined by the Histopathology Laboratory of [facility]. Some of these tests were developed by [...] the attending (teaching) pathologist. 11/28/2022 1:06 PM [facility] Embedded Images 11/28/2022 1:06 PM [facility] Pathology/Cytolo gy ENTIRE LYMPH NODE / Unknown 11/20/2022 1:05 PM SOFTWARE TESTING SPECIALIST 11/26/2022 4:00 PM SOFTWARE TESTING SPECIALIST John Rodrigues MD LAB - PATHOLOGY/CYTO LOGY ORDERABLES Performing Organization Address City/State/[facility] Co de Phone Number [facility] [address] [phone] * [place] REPR CMPL WND HEAD,FAC,HAND 2.6-7.5, [place] CHMSRG MOHS MG TQ H/N/H/F/G 1ST STAG 5 BLOC (05/12/2018 5:04 PM CDT) Narrative Deanna Mckeon MD - 05/12/2018 5:04 PM CDT Deanna Mckeon MD ? 05/12/2018 ??3:06 PM Date of Service: 05/11/2018 Surgery: Mohs micrographic surgery Repair Type: Complex Repair Size: 4.3cm Suture Material: monocryl 4-0;Fast Absorbing Gut 5-0 Tumor Type: Basal cell carcinoma Location: right lateral cheek Derm-Path A PreOp Size: ??1.5x0.9 cm. PostOp Size: ??1.6x1.7 cm. [facility] Level of Defect: fat Procedure: The patient was placed supine on the operating table. ??The cancer was identified, outlined with a marker, and verified by the patient. ??The entire surgical field was prepped with Hibiclens. ?? The surgical site was anesthetized using Lidocaine 1% with epinephrine 1:100,000 buffered with sodium bicarbonate 8.4% in a 1:10 ratio. The area of clinically apparent tumor was debulked with 2mm curette. The layer of tissue was then surgically excised using a #15 blade and was then transferred onto a specimen sheet maintaining the orientation of the specimen. Hemostasis was obtained using monopolar electrodessication. The wound site was then covered with a dressing while the tissue samples were processed for examination. The excised tissue was transported to the [facility] histology laboratory maintaining the tissue orientation. ??The tissue specimen was relaxed so that the entire surgical margin was in a a single horizontal plane for sectioning andinked for precise mapping. ??A precise reference map was drawn to reflect the sectioning of the specimen, colored inking of the margins, and orientation on the patient. ??The tissue was processed using horizontal sectioning ofthe base and continuous peripheral margins. ??The histopathologic sections were reviewed in conjunction with the reference map. Total blocks: ??1 Total slides: ?? 3 No additional tumor was identified on microscopic examination, therefore Mohs surgery was complete. Reconstruction: Complex Closure Primary Surgeon : Linda Phlebotomy Services Representative Surgeon : Lemuel The patient was taken to the operative suite and placed supine on the operating room table. ??The defect was identified. ?? Appropriate markings were made with a marking pen to plan the repair. ??The area was infiltrated with Lidocaine 1% with epinephrine 1:100,000 buffered with sodium bicarbonate 8.4% in a 1:10 ratio and prepped with Hibiclens and draped with sterile towels. The wound was debeveled and undermined widely. ??Hemostasis was obtained using monopolar dessication. The wound was narrowed with SMAS plication and the dermis and subcutaneous tissue were then approximated using buried vertical mattress sutures. ??Care was taken to orient tension vectors of the closure to minimize distortion of free margins. ??Cones of redundant tissue were then excised within relaxed skin tension lines on both sides of the defect and additional buried sutures were placed in a similar fashion where needed. ??Percutaneous simple running sutures were carefully placed for maximum eversion and meticulous approximation. Repair Size: ??4.3 cm Sutures Used: ??monocryl 4-0;Fast Absorbing Gut 5-0. The wound was cleansed with saline and ointment was applied along the wound surface. A sterile pressure dressing was applied. ??Wound care instructions were given verbally and in writing. ??The patient left the operating suite in stable condition. ??Patient was informed that additional refinement of the resulting surgical scar may be used as a second stage of this reconstruction. The Attending surgeon was present for the parada portions of the procedure and always immediately available. Fidencio Hdez MD Dermatology Mohs Fellow, PGY-5 05/11/2018 1:10 PM Deanna Mckeon MD PROCEDURE/MINOR SURG ICAL ORDERABLES * IL EXC SKIN MALIG 3.1-4CM TRUNK,ARM,LEG, IL REPR CMPL WND SCALP,EXTR 2.6-7.5, IL REP,SKIN,SCALP/EXTREM+5CM/< (04/25/2018 5:57 AM CDT) Narrative Deanna Mckeon MD - 04/25/2018 5:57 AM CDT Deanna Mckeon MD ? 04/24/2018 ??7:03 PM Elliptical Excision with Complex Closure Date of Service: 04/24/2018 Surgery: Elliptical excision with complex repair Repair size: ??8.8 cm Tumor Type: melanoma Location: ??right uper lateral arm Derm-Path Lesion Size: 1.4 x 1.3 Level of Defect: fat Suture: running subcuticular monocryl 4-0 Primary Surgeon: ??Linda Phlebotomy Services Representative Surgeon: ??Lemuel/Holli INDICATIONS: The patient was scheduled for excision of a melanoma on the right uper lateral arm. ??The risks of bleeding, infection, discomfort, incomplete removal, and scar formation were explained to the patient. ??All questions were answered. ??After informed consent, confirmation of site and identity, and appropriate instructions, the patient underwent the procedure as follows: PROCEDURE: The lesion was outlined with 1.0 cm margins. ??The lesion and the necessary margin (excised diameter) measured 3.4 x 3.3. ??An ellipse was designed around the lesion to conform to relaxed skin tension lines in an effort to minimize scarring and deformity. ?? The patient was then placed in a supine position. ??The lesion and surrounding skin were prepped with Hibiclens, draped and anesthetized with Lidocaine 1% with epinephrine 1:100,000 buffered with sodium bicarbonate 8.4% in a 1:10 ratio. ??Using a #15 blade the skin was excised along pre-marked lines and a notch was placed at 12 o'clock. ??The resulting defect extended to fat. ?? Wound margins were extensively undermined to limit functional deformity/impairment of adjacent structures. ??Bleeding vessels were controlled with monopolar electrodessication. ?? space was closed and wound edges opposed with buried vertical mattress sutures. ??Epidermal approximation was meticulously refined with running subcuticular monocryl 4-0 sutures, resulting in a linear closure with little to no wound tension. ??Blood loss was estimated to be less than 5 cc. ??The area was coated with petrolatum and covered with a non-adherent pressure dressing followed by gauze and tape. ??Postoperative instructions were reviewed per protocol. ??The patient left alert and fully oriented. Post-Operative Size: ??3.4 x 3.3 Sutures Used: ??monocryl 4-0 Estimated Blood Loss: ??<5 ml Complications: ?? none The Attending surgeon was present for parada portions of the procedure and always immediately available. Fidencio Hdez MD Dermatology Mohs Fellow, PGY-5 04/24/2018 2:43 PM Deanna Mckeon MD PROCEDURE/MINOR SURG ICAL ORDERABLES * PATHOLOGY/GENETICS HISTORICAL-ONBASE (10/04/2013) Only the most recent of2 resultswithin the time period is included. 10/04/2013 Narrative [facility] - 10/07/2013 2:26 PM SOFTWARE TESTING SPECIALIST Historical Provider LAB - CHEMISTRY O RDERABLES [facility] [address] [place], [place] [id number] [place] [address] Care Teams Technology Project Manager Relationship Specialty Start Date End Date DenverMartha narayan DO [address] [place] [address] PCP - General Family Medicine 04/28/24
[2024-10-18 16:52] LABS: Alanine Aminotransferase 21 U/L (6-50); Albumin Level 3.7 g/dL (3.5-5.1); Alkaline Phosphatase 67 U/L (38-126); Anion Gap 9 mmol/L (4-12); Aspartate Amino Transferase 37 U/L (17-59); Blood Urea Nitrogen 22 mg/dL (9-20); Calcium 8.3 mg/dL (8.4-10.2); Carbon Dioxide 25 mmol/L (22-30); Chloride 104 mmol/L (98-107); Estimated Glomerular Filt Rate > 60; Glucose 103 mg/dL (65-110); Potassium 4.2 mmol/L (3.4-5.0); Sodium 138 mmol/L (137-145)
== END 2024-10-18 15:05 | disposition home or self-care (01) ==
LOC: ANHLAB 15:05
PROVIDERS: PCP Family Medicine; Visit Provider Internal Medicine Hematology & Oncology
DX: C91.10 Chronic lymphocytic leukemia of B-cell type not having achieved remission (principal)
CPT/HCPCS: 36415; 80047; 80053; 85025

== ENCOUNTER 2025-02-07 13:26 | Outpatient (CLI) | payer MEDICARE, SELFPAY ==
--- OUTSIDE RECORDS SUMMARY | 2025-02-07 13:31 | XMS_ITS | Encounter Summary ---
Author Organization [facility] Address [address] [place] [address] Care Team Providers Care Concession Manager Name Role Phone Umang Bah MD Primary Care Provider [phone] Martha Gonsales DO Primary Care Provider [phone] Encounter Details Date Type Department Care Team (Late st Contact Info) Description 11/26/2022 Lab Requisition [facility] Care Pathology Lab [address] [place] [address] John Rodrigues MD [facility] [address] [address] Illness, unspecified Social History Tobacco Use Types Packs/Day Years Used Date Smoking Tobacco: Former Smokeless Tobacco: Never Alcohol Use Standard Drinks/Week Comments Yes 0 (1 standard drink = 0.6 oz pur e alcohol) Sex and Gender Information Value Date Recorded Sex Assigned at Not on file Legal Sex Male 5:40 PM BLUEPRINT CUTTER Gender Identity Not on file Sexual Orientation Not on file documented as of this encounter Plan of Treatment Not on file documented as of this encounter Procedures Procedure Name Priority Date/Time Associated Diagnosis Comments PATHOLOGY TISSUE Routine 11/20/2022 1:05 PM BLUEPRINT CUTTER Illness, unspecified documented in this encounter Results * PATHOLOGY TISSUE (11/20/2022 1:05 PM BLUEPRINT CUTTER) Case Report Surgical Pathology Report Case: [id number] Authorizing Provider: John Rodrigues MD Collected: 11/20/2022 01:05 PM Ordering Location: [facility] Pathology Lab Received: 11/26/2022 04:00 PM Pathologist: Elinor Avery Mai, DO Specimen: Lymph Node, Left Axilla lymph node 11/28/2022 1:06 PM [facility] PATHOLOGY LAB Final Diagnosis Left axillary lymph node, needle core biopsy: - 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 The morphology and CD23 expression support small lymphocytic lymphoma/chronic lymphocytic leukemia. The absence of SOX11 argues against mantle cell lymphoma. There is no evidence of large cell transformation, as sampled. 11/28/2022 1:06 PM [facility] PATHOLOGY LAB Clinical History 11/28/2022 1:06 PM [facility] PATH[facility]Y [facility] Materials Received Received are five slide(s) and one block (A1) labeled [id number] along with a copy of the outside pathology report. The materials originate from [facility], [address] [place] [address]. All original materials are returned to the referring institution, along with a copy of our final report. 11/28/2022 1:06 PM [facility] PATHOLOG[facility] Disclaimer The performance characteristics of all immunohistochemical and indirect immunofluorescence stains (if any) cited in this report were determined by the Histopathology Laboratory of [facility]. Some of these tests were developed [...] the attending (teaching) pathologist. 11/28/2022 1:06 PM BLUEPRINT CUTTER [facility] PATHOLOGY LAB Embedded Images 11/28/2022 1:06 PM BLUEPRINT CUTTER [facility] PATHOLOGY LAB Pathology/Cytolo gy ENTIRE LYMPH NODE / Unknown 11/20/2022 1:05 PM BLUEPRINT CUTTER 11/26/2022 4:00 PM BLUEPRINT CUTTER John Rodrigues MD LAB - PATHOLOGY/CYTOLOGY ORDERAB LES Final Result Performing Organization Address City/State/[facility] Co de Phone Number [facility] PATHOLOGY LAB [address] [phone] documented in this encounter Visit Diagnoses Diagnosis Illness, unspecified documented in this encounter Care Teams Concession Manager Relationship Specialty Start Date End Date Umang Bah MD [address] [place] [address] PCP - General 10/20/08 04/27/24 Martha Gonsales DO [address] [place] [address] PCP - General Family Medicine 04/28/24 documented as of this encounter
--- OUTSIDE RECORDS SUMMARY | 2025-02-07 13:31 | XMS_ITS | Clinical Summary ---
Author Organization [facility] [place] Address [address] [place] [address] Care Team Providers Care Magazine Editor Name Role Phone Martha Gonsales Primary Care Provider [phone] Allergies No known active allergies Medications atenoloL (TENORMIN) 25 mg tablet Take 25 mg by mouth daily. Active atorvastatin (LIPITOR) 10 mg tablet Take 10 mg by mouth daily. Active tamsulosin (FLOMAX) 0.4 mg capsule Take 0.4 mg by mouth daily. Active omeprazole (PriLOSEC) 40 mg Capsule, Delayed Release(E.C.) Take 1 Capsule by mouth daily. 02/09/2024 Active zanubrutinib 80 mg capsule Take 2 Capsules (160 mg) by mouth 2 times daily. 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 Gender Identity Not on file Sexual Orientation Not on file Last Filed Vital Signs Vital Sign Reading Time Taken Comments Blood Pressure 153/76 10/18/2024 3:21 PM HOME OFFICE CLAIMS EXAMINER Pulse 51 10/18/2024 3:19 PM HOME OFFICE CLAIMS EXAMINER Temperature 36.3 C (97.3 F) 10/18/2024 3:19 PM HOME OFFICE CLAIMS EXAMINER Respiratory Rate 15 10/18/2024 3:19 PM HOME OFFICE CLAIMS EXAMINER Oxygen Saturation 96% 10/18/2024 3:19 PM HOME OFFICE CLAIMS EXAMINER Inhaled Oxygen Concentration - - Weight 92.3 kg (203 lb 6.4 oz) 10/18/2024 3:19 P M HOME OFFICE CLAIMS EXAMINER Height 180.3 cm (5' 11 ) 04/01/2023 3:30 PM CDT Body Mass Index 28.37 04/01/2023 3:30 PM CDT Plan of Treatment Upcoming Encounters Date Type Department Care Team (Late st Contact Info) Description 02/07/2025 2:15 PM CDT Office Visit [facility] Oncology and Hematology - [place] [address] [facility] [address] [place] [address] Ryan Carney MD [address] [facility] [address] [place] [address] Health Maintenance Due Date Last Done Comments DTAP/TDAP/TD VACCINES (1 - Tdap) 1959 PNEUMOCOCCAL VACCINE 50+ YEARS (1 of 2 - PCV) 08/03/19 57 Traditional Medicare (ACO) Annual Wellness Visit 08/03 ZOSTER VACCINE (1 of 2) 1957 RSV VACCINE (60+ or ) (1 - 1-dose 75+ series) 2013 INFLUENZA VACCINE (#1) 2024 Insurance MEDICARE PART A AND B [facility] [id number] [employer] [facility] [employer] Medicare Part D RX [employer] Medicare Part D Care Teams Magazine Editor Relationship Specialty Start Date End Date Martha Gonsales DO [address] [place] [address] PCP - General Family Practice 11/25/22
--- OUTSIDE RECORDS SUMMARY | 2025-02-07 13:31 | XMS_ITS | Encounter Summary ---
Author Organization [facility] Address [address] [facility] [place] [address] Care Team Providers Care Applications Packager Name Role Phone Umang Bah MD Primary Care Provider [phone] Martha Gonsales DO Primary Care Provider [phone] Encounter Details Date Type Department Care Team (Late st Contact Info) Description 12/02/2019 Lab Requisition [facility] Care DermPath Lab [address] [facility], [place] [address] Jeramie Osullivan MD [address] [place] [address] Social History Tobacco Use Types Packs/Day Years Used Date Smoking Tobacco: Former Smokeless Tobacco: Never Alcohol Use Standard Drinks/Week Comments Yes 0 (1 standard drink = 0.6 oz pur e alcohol) Sex and Gender Information Value Date Recorded Sex Assigned at Not on file 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 Gender Identity Not on file Sexual Orientation Not on file documented as of this encounter Plan of Treatment Not on file documented as of this encounter Procedures Procedure Name Priority Date/Time Associated Diagnosis Comments DERMATOPATHOLOGY Routine 12/01/2019 12:0 0 AM CDT documented in this encounter Results * DERMATOPATHOLOGY (12/01/2019 12:00 AM CDT) Case Report Dermatopathology Report Case: [id number] Authorizing Provider: Jeramie Osullivan MD Collected: 12/01/2019 12:00 AM Ordering Location: [facility] DermPath Lab Received: 12/02/2019 12:48 PM Pathologist: Cassia Espinosa MD Specimen: Skin, right upper back inferior 0 3:40 PM CDT DERMATOPATHOLOGY LABORATORY Final Diagnosis Specimen A. SKIN, right upper back inferior: DERMAL SCAR RESIDUAL BASAL CELL CARCINOMA NOT IDENTIFIED (L90.5) 0 3:40 PM CDT DERMATOPATHOLOGY LABORATORY at 1540 CDT Clinical History Bx proven BCC. Previous Bx: [id number]. 0 3:40 PM CDT DERMATOPATHOLOGY LABORATORY Gross Description Specimen A: Received is one formalin filled container labeled with the patient's name and designated right upper back inferior. The specimen consists of a curettage and desiccation biopsy measuring [id number]. Jar 0. 0 3:40 PM CDT DERMATOPATHOLOGY [...] characteristic determined by the Dermatopathology Laboratory at [facility], directed by Dr. Su Man. These tests need not be, and therefore are not, approved by the [place] Food and Drug Administration. The tests are used for clinical purposes. Billing Codes Specimen Charges Stain Charges 02300 1 0 3:40 PM CDT DERMATOPATHOLOGY LABORATORY Embedded Images 0 3:40 PM CDT DERMATOPATHOLOGY LABORATORY Pathology/Cytolog y TISSUE SPECIMEN FROM SKIN / Unknown 12/01/2019 12/02/2019 12:48 PM CDT us Jeramie Osullivan MD LAB - PATHOLOGY/CYTOLOGY ORD ERABLES Final Result DERMATOPATHOLOGY LABORATORY [facility] - Department of Dermatology [facility], 5th Floor Lab B [address] [phone] documented in this encounter Visit Diagnoses Not on filedocumented in this encounter Care Teams Applications Packager Relationship Specialty Start Date End Date Umang Bah MD [address] [place] [address] PCP - General 10/20/08 04/27/24 Martha Gonsales DO [address] [place] [address] PCP - General Family Medicine 04/28/24 documented as of this encounter
--- OUTSIDE RECORDS SUMMARY | 2025-02-07 13:31 | XMS_ITS | Encounter Summary ---
Author Organization [facility] Address [address] [facility] [place] [address] Care Team Providers Care Retread Operator Name Role Phone Umang Bah MD Primary Care Provider [phone] Martha Gonsales DO Primary Care Provider [phone] Encounter Details Date Type Department Care Team (Late st Contact Info) Description 04/02/2018 Lab Requisition [facility] Care DermPath Lab [address] 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 Gender Identity Not on file Sexual Orientation Not on file documented as of this encounter Plan of Treatment Not on file documented as of this encounter Procedures Procedure Name Priority Date/Time Associated Diagnosis Comments DERMATOPATHOLOGY Routine 04/01/2018 12:0 0 AM CDT documented in this encounter Results * DERMATOPATHOLOGY (04/01/2018 12:00 AM CDT) Case Report Dermatopathology Report Case: [id number] Authorizing Provider: Jeramie Osullivan MD Collected: 04/01/2018 12:00 AM Pathologist: Mary Jaeger MD Received: 04/02/2018 11:55 AM Specimens: A) - Skin, right lower lat cheek B) - Skin, right upper lateral arm 2:22 PM [facility] DERMATOPATHOLOGY LABORATORY Final Diagnosis Specimen A. SKIN, right lower lat cheek: BASAL CELL CARCINOMA, NODULAR TYPE (C44.319) Specimen B. 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 2:22 PM [facility] DERMATOPATHOLOGY LABORATORY Gross Description Specimen A: Received is one formalin filled container labeled with the patient's name and designated right lower lat cheek. The specimen consists of a shave biopsy measuring [id number]. Jar 0. Specimen B: Received is one formalin filled container labeled with the patient's name and designated right upper lateral arm. The specimen consists of a shave biopsy measuring [id number]. Jar 0. 2:22 PM [facility] DERMATOPATHOLOGY LABORATORY Microscopic Description Specimen A. SKIN, [...] present at the margin of the specimen. 2:22 PM T DERMATOPATHOLOGY LABORATORY Disclaimer An external and internal positive and negative controls are appropriate for the histochemical, immunohistochemical and immunofluorescence stain(s) in this case (if any), except where stated explicitly. The performance characteristics of the stain(s) cited in this report were developed and its performance characteristic determined by the Dermatopathology Laboratory at [facility]. These tests need not be, and therefore are not, approved by the [place] Food and Drug Administration. The tests are used for clinical purposes. Billing Codes Specimen Charges Stain Charges 27637 04674 1 1 8 2:22 PM CDT DERMATOPATHOLOGY LABORATORY Embedded Images 2:22 PM CDT DERMATOPATHOLOGY LABORATORY Synoptic Report MELANOMA OF THE SKIN: Biopsy (Melanoma Bx - B) SPECIMEN Procedure: Biopsy, shave Specimen Laterality: Right TUMOR Tumor Site: Skin of upper limb and shoulder: right upper lateral arm : Histologic Type: Superficial spreading melanoma Maximum Tumor (Breslow) Thickness in Millimeters (mm): At least: 0.5 Millimeters (mm) : Tumor is present at the surgical margin; therefore, current depth may exceed the current one. Tumor Extent: Anatomic (Pritesh) Level: III (melanoma fills and expands papillary dermis) Ulceration: Not identified Accessory Findings: Mitotic Rate: None identified Lymphovascular Invasion: Not identified Neurotropism: Not identified Tumor-Infiltrating Lymphocytes: Present, nonbrisk Tumor Regression: Present MARGINS: Peripheral Margins: Uninvolved by invasive melanoma Status of Melanoma In Situ Involvement at Peripheral Margins: Involved by melanoma in situ Deep Margin: Uninvolved by invasive melanoma PATHOLOGIC STAGE CLASSIFICATION (pTNM, AJCC 8th Edition): Primary Tumor (pT): pT1a Comment(s) Comment(s): Dr. Gifty Man has also reviewed this case and agrees with the diagnosis. 2:22 PM CDT DERMATOPATHOLOGY LABORATORY Pathology/Cytology TISSUE SPECIMEN FROM SKIN / Unknown 04/01/2018 04/02/2018 11:55 AM CDT Miscellaneous samples (specimen) TISSUE SPECIMEN FROM SKIN / Unknown 04/01/2018 04/02/2018 11:55 AM CDT Jeramie Osullivan MD LAB - PATHOLOGY/CYTOLOGY ORD ERABLES Final Result DERMATOPATHOLOGY LABORATORY [facility] - Department of Dermatology [address] [place] [address], 5th Floor Lab [address] [phone] documented in this encounter Visit Diagnoses Not on filedocumented in this encounter Care Teams Retread Operator Relationship Specialty Start Date End Date Umang Bah MD [address] [place] [address] PCP - General 10/20/08 04/27/24 Martha Gonsales DO [address] [place] [address] PCP - General Family Medicine 04/28/24 documented as of this encounter
--- OUTSIDE RECORDS SUMMARY | 2025-02-07 13:31 | XMS_ITS | Encounter Summary ---
Author Organization [facility] Address [address] [facility] [place] [address] Care Team Providers Care Costumer Name Role Phone Umang Bah MD Primary Care Provider [phone] Martha Gonsales DO Primary Care Provider [phone] Encounter Details Date Type Department Care Team (Late st Contact Info) Description 03/18/2024 Lab Requisition [facility] - DermPath Lab [address] 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 - Received: 03/18/2024 10:46 AM DermPath Lab Pathologist: Chasidy Espinosa MD Specimen: Skin, left chin 1:46 PM CDT DERMATOPATHOLOGY LABORATORY Final Diagnosis Specimen A. SKIN, left chin: BASAL CELL CARCINOMA, NODULAR TYPE (C44.319) 1:46 PM CDT DERMATOPATHOLOGY LABORATORY at 1346 CDT Clinical History R/O SCC 1:46 PM CDT DERMATOPATHOLOGY LABORATORY Gross Description [...] characteristic determined by the Dermatopathology Laboratory at [facility], directed by Dr. Su Man. These tests need not be, and therefore are not, approved by the [place] Food and Drug Administration. The tests are used for clinical purposes. Billing Codes Specimen Charges Stain Charges 01512 1 1:46 PM CDT DERMATOPATHOLOGY LABORATORY Embedded Images 1:46 PM CDT DERMATOPATHOLOGY LABORATORY Pathology/Cytolog y TISSUE SPECIMEN FROM SKIN / Unknown 03/16/2024 03/18/2024 10:46 AM CDT Jeramie Osullivan MD LAB - PATHOLOGY/CYTOLOGY ORD ERABLES Final Result DERMATOPATHOLOGY LABORATORY [facility] - Department of Dermatology [facility] [address] [place] [address], [address] [phone] documented in this encounter Visit Diagnoses Not on filedocumented in this encounter Care Teams Costumer Relationship Specialty Start Date End Date Umang Bah MD [address] [place] [address] PCP - General 10/20/08 04/27/24 Martha Gonsales DO [address] [place] [address] PCP - General Family Medicine 04/28/24 documented as of this encounter
--- OUTSIDE RECORDS SUMMARY | 2025-02-07 13:31 | XMS_ITS | Encounter Summary ---
Author Organization [facility] Address [address] [place] [address] Care Team Providers Care Carpentry Instructor Name Role Phone Umang Bah MD Primary Care Provider [phone] Martha Gonsales DO Primary Care Provider [phone] Encounter Details Date Type Department Care Team (Late st Contact Info) Description 10/15/2019 Lab Requisition [facility] Care DermPath Lab [address] [facility], [place] [phone] Jeramie Osullivan MD [address] [place] [address] Social History Tobacco Use Types Packs/Day Years Used Date Smoking Tobacco: Former Smokeless Tobacco: Never Alcohol Use Standard Drinks/Week Comments Yes 0 (1 standard drink = 0.6 oz pur e alcohol) Sex and Gender Information Value Date Recorded Sex Assigned at Not on file 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 Gender Identity Not on file Sexual Orientation Not on file documented as of this encounter Plan of Treatment Not on file documented as of this encounter Procedures Procedure Name Priority Date/Time Associated Diagnosis Comments DERMATOPATHOLOGY Routine 10/13/2019 12:0 0 AM QUALITATIVE EXECUTIVE RESEARCHER documented in this encounter Results * DERMATOPATHOLOGY (10/13/2019 12:00 AM QUALITATIVE EXECUTIVE RESEARCHER) Case Report Dermatopathology Report Case: [id number] Authorizing Provider: Jeramie Osullivan MD Collected: 10/13/2019 12:00 AM Ordering Location: [facility] DermPath Lab Received: 10/15/2019 07:49 AM Pathologist: Maki Velasco MD Specimens: A) - Skin, left mid ext forearm B) - Skin, right upper back C) - Skin, right upper back inferior 0 10:49 AM [facility] DERMATOPATHOLOGY LABORATORY Final Diagnosis Specimen A. SKIN, left mid ext forearm: SQUAMOUS PROLIFERATION (D48.5) DERMAL FIBROSIS (L90.5) (see microscopic description and comment) Specimen B. SKIN, right upper back: BASAL CELL CARCINOMA, NODULAR TYPE (C44.519) NOT PRESENT AT SAMPLED MARGIN Specimen C. SKIN, right upper back inferior: BASAL CELL CARCINOMA, SUPERFICIAL MULTIFOCAL (C44.519) 0 10:49 AM [facility] DERMATOPATHOLOGY LABORATORY at 1049 QUALITATIVE EXECUTIVE RESEARCHER Clinical History A: R/O KA, SCC. B: R/O SCC, BCC. Check margins. C: R/O SCC, BCC. 0 10:49 AM [facility] DERMATOPATHOLOGY LABORATORY Gross Description Specimen A: Received is one formalin filled container labeled with the patient's name and designated left mid ext forearm. The specimen consists of a curettage and desiccation biopsy measuring [id number]. Jar 0. Specimen B: Received is one formalin filled container labeled with the patients name and designated right upper back. The specimen consists of a shave removal measuring [id number]. The margin is inked green. Jar 0. Specimen C: Received is one formalin filled container labeled with the patient's name and designated right upper back inferior. The specimen consists of a shave biopsy measuring [id number]. Jar 0. 0 10:49 AM [facility] DERMATOPATHOLOGY LABORATORY Microscopic Description Specimen A. [...] ratio and peripheral palisading. 0 10:49 AM [facility] DERMATOPATHOLOGY LABORATORY Disclaimer An external and internal positive and negative controls are appropriate for the histochemical, immunohistochemical and immunofluorescence stain(s) in this case (if any), except where stated explicitly. The performance characteristics of the stain(s) cited in this report were developed and its performance characteristic determined by the Dermatopathology Laboratory at [facility], directed by Dr. Su Man. These tests need not be, and therefore are not, approved by the [place] Food and Drug Administration. The tests are used for clinical purposes. Billing Codes Specimen Charges Stain Charges 72714 84416 80186 1 1 1 0 10:49 AM QUALITATIVE EXECUTIVE RESEARCHER DERMATOPATHOLOGY LABORATORY Embedded Images 0 10:49 AM QUALITATIVE EXECUTIVE RESEARCHER DERMATOPATHOLOGY LABORATORY Pathology/Cytology TISSUE SPECIMEN FROM SKIN / Unknown 10/13/2019 10/15/2019 7:49 AM QUALITATIVE EXECUTIVE RESEARCHER Miscellaneous samples (specimen) TISSUE SPECIMEN FROM SKIN / Unknown 10/13/2019 10/15/2019 7:49 AM QUALITATIVE EXECUTIVE RESEARCHER Miscellaneous samples (specimen) TISSUE SPECIMEN FROM SKIN / Unknown 10/13/2019 10/15/2019 7:49 AM QUALITATIVE EXECUTIVE RESEARCHER Jeramie Osullivan MD LAB - PATHOLOGY/CYTOLOGY ORD ERABLES Final Result DERMATOPATHOLOGY LABORATORY [facility] - Department of Dermatology [facility], 5th [place] [address], [facility] [phone] documented in this encounter Visit Diagnoses Not on filedocumented in this encounter Care Teams Carpentry Instructor Relationship Specialty Start Date End Date Umang Bah MD [address] [place] [address] PCP - General 10/20/08 04/27/24 Martha Gonsales DO [address] [place] [address] PCP - General Family Medicine 04/28/24 documented as of this encounter
--- OUTSIDE RECORDS SUMMARY | 2025-02-07 13:31 | XMS_ITS | Clinical Summary ---
Author Organization [facility] Address [address] [place] [address] Care Team Providers Care Speech Communication Professor Name Role Phone Martha Gonsales DO Primary Care Provider [phone] Source Comments [facility],non-owned Affiliates and Associated Physician Practices is amultiple site organization consisting of ambulatory clinics and hospital sitesin [place], [place], [place] and [place]. This disclosure is being madepursuant to the Care Everywhere program and may not contain all information available regarding this patient. Last updated 18.[facility] Allergies No known active allergies Medications * Be aware that medications may not be up to date on this document. Alwaysverify current medications with the patient. 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 Gender Identity Not on file Sexual Orientation [...] Due Date Last Done Comments MEDICARE AWV 12 MONTHS 1938 DTAP/TDAP/TD VACCINES (1 - Tdap) 1957 PNEUMOCOCCAL VACCINE 50+ (1 of 1 - PCV) 1988 ZOSTER VACCINE (1 of 2) 1988 Respiratory Syncytial Virus (RSV) Vaccine Pt: or over 60 yrs (1 - 1-dose 75+ series) 2013 COVID-19 VACCINE ( - 2023-2 5 season) 2024 DEPRESSION SCREENING 09/22/2024 INFLUENZA VACCINE (Season Ended) 2025 HEPATITIS B VACCINE Aged Out No longe r eligible based on patient's age to complete this topic HIB VACCINE Aged Out No longer eligi ble based on patient's age to complete this topic HPV VACCINE Aged Out No longer eligi ble based on patient's age to complete this topic MENINGOCOCCAL (Group B) VACC INE SHARED DECISION-MAKING Aged Out No longer eligibl e based on patient's age to complete this topic MENINGOCOCCAL GROUPS A/C/Y/W VACCINE Aged Out No longer eligible b ased on patient's age to complete this topic Insurance MEDICARE [facility] MEDICARE AAR * Guarantor: DORY GONZALES Account Type Relation to Patient Date of Phone Billing Address Personal/Family [address] [place] [address] MEDICARE Member Subscriber Plan / Payer (Ef fective for All Dates) Name:Dory Gonzales Member ID:[id number] Relation to Subscriber:Self Name:Dory Gonzales Subscriber ID:[id number] Payer ID:Not on file Group ID:Not on file Type:Medicare Address: [place] [address] [place] [address] * Guarantor: DORY GONZALES Account Type Relation to Patient Date of Phone Billing Address Personal/Family [address] [place], [place] [id number] MEDICARE A[employer] Care Teams Speech Communication Professor Relationship Specialty Start Date End Date Martha Gonsales DO [address] [place] [address] PCP - General Family Medicine 04/28/24
--- OUTSIDE RECORDS SUMMARY | 2025-02-07 13:31 | XMS_ITS | Clinical Summary ---
Author Organization [facility] Address [address] [address] Phone Care Team Providers Care R D Manager Name Role Phone Umang Bah MD Primary Care Provider Allergies No known active allergies Medications atenolol (TENORMIN) 25 MG Tablet Take 1 Tab by mouth. 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
--- OUTSIDE RECORDS SUMMARY | 2025-02-07 13:31 | XMS_ITS | Encounter Summary ---
Author Organization [facility] Address [address] [facility] [address] [place] [address] Care Team Providers Care Smoked Meat Preparer Name Role Phone Umang Bah MD Primary Care Provider [phone] Martha Gonsales DO Primary Care Provider [phone] Encounter Details Date Type Department Care Team (Late st Contact Info) Description 04/19/2020 Lab Requisition [facility] Care DermPath Lab [address] [facility], [place] [id number] Jeramie Osullivan MD [address] [place] [address] Social History Tobacco Use Types Packs/Day Years Used Date Smoking Tobacco: Former Smokeless Tobacco: Never Alcohol Use Standard Drinks/Week Comments Yes 0 (1 standard drink = 0.6 oz pur e alcohol) Sex and Gender Information Value Date Recorded Sex Assigned at Not on file 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 Gender Identity Not on file Sexual Orientation Not on file documented as of this encounter Plan of Treatment Not on file documented as of this encounter Procedures Procedure Name Priority Date/Time Associated Diagnosis Comments DERMATOPATHOLOGY Routine 04/18/2020 12:0 0 AM CDT documented in this encounter Results * DERMATOPATHOLOGY (04/18/2020 12:00 AM CDT) Case Report Dermatopathology Report Case: [id number] Authorizing Provider: Jeramie Osullivan MD Collected: 04/18/2020 12:00 AM Ordering Location: [facility] DermPath Lab Received: 04/19/2020 01:16 PM Pathologist: Haritha Man MD Specimen: Skin, right mid ext FA 0 5:20 PM CDT DERMATOPATHOLOGY LABORATORY Final Diagnosis Specimen A. SKIN, right mid ext FA: CYSTIC BENIGN VERRUCOUS KERATOSIS, INFLAMED (L82.1) NOT PRESENT AT SAMPLED MARGIN 0 5:20 PM CDT DERMATOPATHOLOGY LABORATORY at 1719 CDT Clinical History R/O SCC, other neoplasm. 0 5:20 PM CDT DERMATOPATHOLOGY LABORATORY Gross Description Specimen A: Received is one formalin filled container labeled with the patient's name and designated right mid ext FA. The specimen consists of a punch biopsy measuring [id number], bisected. Jar 0. 0 5:20 PM CDT [...] characteristic determined by the Dermatopathology Laboratory at [facility], directed by Dr. Su Man. These tests need not be, and therefore are not, approved by the [place] Food and Drug Administration. The tests are used for clinical purposes. Billing Codes Specimen Charges Stain Charges 24929 1 0 5:20 PM CDT DERMATOPATHOLOGY LABORATORY Embedded Images 0 5:20 PM CDT DERMATOPATHOLOGY LABORATORY Pathology/Cytolog y TISSUE SPECIMEN FROM SKIN / Unknown 04/18/2020 04/19/2020 1:16 PM CDT Jeramie Osullivan MD LAB - PATHOLOGY/CYTOLOGY ORD ERABLES Final Result DERMATOPATHOLOGY LABORATORY [facility] - Department of Dermatology [facility]/[address] [phone] documented in this encounter Visit Diagnoses Not on filedocumented in this encounter Care Teams Smoked Meat Preparer Relationship Specialty Start Date End Date Umang Bha MD [address] [place] [address] PCP - General 10/20/08 04/27/24 Martha Gonsales DO [address] [place] [address] PCP - General Family Medicine 04/28/24 documented as of this encounter
--- OUTSIDE RECORDS SUMMARY | 2025-02-07 13:31 | XMS_ITS | Encounter Summary ---
Author Organization [facility] Address [address] [place] [address] Care Team Providers Care Data Analytics Developer Name Role Phone Umang Bah MD Primary Care Provider [phone] Martha Gonsales DO Primary Care Provider [phone] Encounter Details Date Type Department Care Team (Late st Contact Info) Description 11/26/2022 Lab Requisition [facility] Care Pathology Lab [address] [place] [address] John Rodrigues MD [facility] [address] [address] Illness, unspecified Social History Tobacco Use Types Packs/Day Years Used Date Smoking Tobacco: Former Smokeless Tobacco: Never Alcohol Use Standard Drinks/Week Comments Yes 0 (1 standard drink = 0.6 oz pur e alcohol) Sex and Gender Information Value Date Recorded Sex Assigned at Not on file 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
[2025-02-07 13:50] LABS: Basophils Absolute Auto 0.1 K/mm3 (0.0-0.1); Basophils Percent Auto 0.7 % (0.2-1.2); Eosinophils Absolute Auto 0.3 K/mm3 (0-0.3); Eosinophils Percent Auto 3.7 % (0-4.4); Hematocrit 39.9 % (42.0-52.0); Hemoglobin 13.1 g/dL (14.0-18.0); Immature Granulocyte Absolute 0.03 K/mm3 (0.00-0.031); Immature Granulocyte Percent A 0.4 % (0-0.5); Lymphocytes Percent Auto 26.8 % (18.3-44.2); Mean Corpuscular HGB Conc 32.8 g/dl (32-36); Mean Corpuscular Hemoglobin 28.1 pg (26-34); Mean Corpuscular Volume 85.6 fl (80-100); Mean Platelet Volume 12.9 fl (7.4-10.4); Monocytes Absolute Auto 0.6 K/mm3 (0.1-0.6); Monocytes Percent Auto 9.5 % (2.6-8.5); Neutrophils Absolute Auto 3.9 K/mm3 (1.3-6.7); Neutrophils Percent Auto 58.9 % (45.5-73.1); Platelet Count Result 121 k/mm3 (150-375); Red Blood Count 4.66 M/mm3 (4.6-6.20); Red Cell Distribution Width 13.4 % (11.5-14.5); White Blood Count 6.7 K/mm3 (4.5-10.0)
[2025-02-07 13:54] LABS: Blood Urea Nitrogen 17 mg/dL (8-26); Carbon Dioxide 26 mmol/L (22-30); Chloride 101 mmol/L (98-109); Estimated Glomerular Filt Rate 57; Glucose 100 mg/dL (70-105); Ionized Calcium (POC) 1.18 mmol/L (1.11-1.31); Sodium 139 mmol/L (138-146)
== END 2025-02-07 13:27 | disposition home or self-care (01) ==
LOC: ANHLAB 13:28
PROVIDERS: PCP Family Medicine; Visit Provider Internal Medicine Hematology & Oncology
DX: C91.10 Chronic lymphocytic leukemia of B-cell type not having achieved remission (principal)
CPT/HCPCS: 36415; 80047; 85025

== ENCOUNTER 2025-06-20 13:51 | Outpatient (CLI) | payer MEDICARE, SELFPAY ==
--- OUTSIDE RECORDS SUMMARY | 2009-12-11 04:15 | XMS_ITS | Continuity of Care Document ---
Author Organization [facility] Address [address] [place] [address] Phone Care Team Providers Care Broadcast Director Operations Name Role Phone Osman Schilling Unavailable Unavailable Procedures Procedure Date Office/outpatient Visit, Est Eye Exam & Treatment No Script Eye Exam & Treatment Visual Functional Status Assessed Refraction Advance Directives Directive Yes / No Effective Date File Name No Information Encounters Encounter Description Practice Location Reason(s) For Visit Diagnoses Date Provider Providers Copied on Encounter Office/outpat ient Visit, Est [facility], [address], [place], [place], [id number], [place] tel:[phone] [facility] No Information 2201 0 Shakir Brewer. [address] , [address], [place], [place], [facility], . tel:[phone] [facility], [address], [place], [place], [id number], [place] tel:[phone] [facility] No Information 9 Shakir Brewer. [address] , [address], [place], [place], [facility], [place]. tel:[phone] [facility], [address], [place], [place], [id number], tel:[phone] [facility] No Information [id number] 7 Shakir Brewer. [address] , [address], [place], [address], [place]. tel:[phone] Family History Family Member Type Diagnosis Age At Onset No Information Payers Payer name Insurance type Covered green party ID Authoriza tion(s) Medicare [facility] [id number] [facility] [id number] Social History Type Description Quantity Date Captured Comments Sex Male Smoking Status No Information Chief Complaint And Reason For Visit No Information Reason For Referral Reason For Referral No Information History Of Present Illness Encounter Date Complaint History Of Prese nt Illness No Information Functional Status Date Functional Assessmen t No Information Instructions Date Instruction Additional Infor mation No Information Assessments Type Assessment Date No Information Patient Care Teams Name Effective Dates (start - stop) Status Members No Information
[2025-06-20 14:07] LABS: Blood Urea Nitrogen 22 mg/dL (8-26); Carbon Dioxide 24 mmol/L (22-30); Chloride 103 mmol/L (98-109); Estimated Glomerular Filt Rate 57; Glucose 128 mg/dL (70-105); Ionized Calcium (POC) 1.19 mmol/L (1.11-1.31); Potassium 4.1 mmol/L (3.5-4.9); Sodium 139 mmol/L (138-146)
[2025-06-20 14:09] LABS: Hematocrit 39.7 % (42.0-52.0); Hemoglobin 12.9 g/dL (14.0-18.0); Immature Granulocyte Percent A 0.3 % (0-0.5); Immature Platelet Fraction Pct 15.9 % (0.9-11.2); Lymphocytes Absolute Auto 1.77 K/mm3 (0.9-3.2); Mean Corpuscular HGB Conc 32.5 g/dl (32-36); Mean Corpuscular Hemoglobin 28.1 pg (26-34); Mean Corpuscular Volume 86.5 fl (80-100); Nucleated Red Blood Cells Absolute Auto 0.000 K/mm3 (0.0-0.012); Nucleated Red Blood Cells Perc 0.0 % (0.0-0.2); Platelet Count Result 115 k/mm3 (150-375); Red Blood Count 4.59 M/mm3 (4.6-6.20); White Blood Count 7.3 K/mm3 (4.5-10.0)
[2025-06-20 14:10] LABS: Schistocytes None Seen
--- OUTSIDE RECORDS SUMMARY | 2025-06-20 14:20 | XMS_ITS | Clinical Summary ---
Author Organization [facility] [place] Address [address] [place] [address] Care Team Providers Care Electrical Test Engineer Name Role Phone Martha Gonsales Primary Care Provider [phone] Allergies No known active allergies Medications atenoloL (TENORMIN) 25 mg tablet Take 25 mg by mouth daily. Active atorvastatin (LIPITOR) 10 mg tablet Take 10 mg by mouth daily. Active tamsulosin (FLOMAX) 0.4 mg capsule Take 0.4 mg by mouth daily. Active omeprazole (PriLOSEC) 40 mg Capsule, Delayed Release(E.C.) Take 1 Capsule by mouth daily. 02/09/2024 Active zanubrutinib (Brukinsa) 80 mg capsule TAKE 2 CAPSULES BY MOUTH TWICE A DAY 120 Capsule 2 03/07/2025 Active Active Problems No known active problems Encounters Date Type Department Care Team Description 06/20/2025 2:30 PM CDT Office Visit [facility] Oncology and Hematology - [address] [place] [address] Ryan Carney MD Arrived 06/07/2025 External Device Data STL ABSTRACTION Provider, Abstract 06/07/2025 External Device Data STL ABSTRACTION Provider, Abstract 05/11/2025 External Device Data STL ABSTRACTION Provider, Abstract 05/10/2025 External Device Data STL ABSTRACTION Provider, Abstract 04/27/2025 External Device Data STL ABSTRACTION Provider, Abstract 04/26/2025 External Device Data STL ABSTRACTION Provider, Abstract 04/06/2025 External Device Data STL ABSTRACTION Provider, Abstract 04/05/2025 External Device Data STL ABSTRACTION Provider, Abstract [...] on file 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 Gender Identity Not on file Sexual Orientation Not on file Last Filed Vital Signs Vital Sign Reading Time Taken Comments Blood Pressure 132/69 06/20/2025 2:06 PM CDT Pulse 69 06/20/2025 2:06 PM CDT Temperature 36.8 C (98.2 F) 06/20/2025 2:06 PM CDT Respiratory Rate 15 02/07/2025 1:45 PM CDT Oxygen Saturation 96% 06/20/2025 2:06 PM CDT Inhaled Oxygen Concentration - - Weight 94.8 kg (209 lb) 06/20/2025 2:06 PM CDT Height 180.3 cm (5' 11) 04/01/2023 3:30 PM CDT Body Mass Index 29.15 04/01/2023 3:30 PM CDT Plan of Treatment Upcoming Encounters Date Type Department Care Team (Late st Contact Info) Description 06/20/2025 2:30 PM CDT Office Visit [facility] Oncology and Hematology - [place] [address] [facility] [address] [place] [address] Ryan Carney MD [address] [facility] [address] [place] [address] Arrived Health Maintenance Due Date Last Done Comments DTAP/TDAP/TD VACCINES (1 - Tdap) 1957 PNEUMOCOCCAL VACCINE 50+ YEARS (1 of 2 - PCV) 08/03/19 57 ZOSTER VACCINE (1 of 2) 1957 RSV VACCINE (60+ or ) (1 - 1-dose 75+ series) 2013 INFLUENZA VACCINE (#1) 2025 Insurance MEDICARE PART A AND B [facility] [id number] Member Subscriber Plan / Payer (Ef fective 2022-) Name:BrianbobbyWing robles Relation to Subscriber:Self Name:[place] Payer ID:[id number] (NAIC) Group ID:[id number] Type:Supplemental Address: [place] [id number] [employer] Medicare Part D [employer] Medicare Part D Care Teams Electrical Test Engineer Relationship Specialty Start Date End Date Martha Gonsales DO [address] [place] [address] PCP - General Family Practice 11/25/22
--- OUTSIDE RECORDS SUMMARY | 2025-06-20 14:20 | XMS_ITS | Clinical Summary ---
Author Organization [facility] Address [address] [address] Phone Care Team Providers Care Secy Name Role Phone Umang Bah MD Primary Care Provider [phone] Allergies No known active allergies Medications atenolol (TENORMIN) 25 MG Tablet Take 1 Tab by mouth. 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 Not on file Not on oli e [...] 1:57 PM CDT Height 180.3 cm (5' 11) 01/11/2019 1:57 PM CDT Body Mass Index 30.99 01/11/2019 1:57 PM CDT Plan of Treatment Health Maintenance Due Date Last Done Comments Hepatitis C Virus (HCV) Screening 1940 TdaP Immunization 1938 Pneumococcal Immunization (5 0+ years) (1 of 1 - PCV) 1988 Zoster Immunization (1 of 2) 1988 Medicare Initial AWV [id number] 10/02/2003 Respiratory Syncytial Virus (RSV) Immunization (Adult) (1 - 1-dose 75+ series) 2013 Influenza Immunization (#1) 2025 07/22/2018 SARS-COV-2 Immunization ( season) 2025 07/06/2021, 12/08/2020, 11/17/2020 Hepatitis B Immunization Aged Out No longer eligible based on patient's age to complete this topic Human Papillomavirus (HPV) Immunization Aged Out No longer eligible b ased on patient's age to complete this topic Meningococcal Immunization (ACWY) Aged Out No longer eligible b ased on patient's age to complete this topic Rotavirus Immunization Aged Out No lo nger eligible based on patient's age to complete this topic Insurance MEDICARE [facility] Care Teams Secy Relationship Specialty Start Date End Date Umang Bah MD [address] [place] [address] PCP - General Family Medicine 10/02/18
--- OUTSIDE RECORDS SUMMARY | 2025-06-20 14:30 | XMS_ITS | Encounter Summary ---
Author Organization [facility] Address [address] [place] [address] Care Team Providers Care Emotional Disabilities Teacher Name Role Phone Martha Gonsales DO Primary Care Provider [phone] Reason for Visit * Reason Comments Follow Up Encounter Details Date Type Department Care Team (Late st Contact Info) Description 06/20/2025 2:30 PM CDT Office Visit [facility] Oncology and Hematology - [place] [address] [facility] [address] [place] [address] Ryan Carney MD [address] [facility] [address] [place] [address] Arrived Social History Tobacco Use Types Packs/Day Years Used Date Smoking Tobacco: Former Pipe Q uit: 1996 Smokeless Tobacco: Never Tobacco Cessation:Counseling Given: Not Answered Alcohol Use Standard Drinks/Week Comments Yes 7 (1 standard drink = 0.6 oz pur e alcohol) Sex and Gender Information Value Date Recorded Sex Assigned at Not on file 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 Gender Identity Not on file Sexual Orientation Not on file documented as of this encounter Last Filed Vital Signs Vital Sign Reading Time Taken Comments Blood Pressure 132/69 06/20/2025 2:06 PM CDT Pulse 69 06/20/2025 2:06 PM CDT Temperature 36.8 C (98.2 F) 06/20/2025 2:06 PM CDT Respiratory Rate - - Oxygen Saturation 96% 06/20/2025 2:06 PM CDT Inhaled Oxygen Concentration - - Weight 94.8 kg (209 lb) 06/20/2025 2:06 PM CDT Height - - Body Mass Index 29.15 04/01/2023 3:30 PM CDT documented in this encounter Plan of Treatment Not on file documented as of this encounter Visit Diagnoses Not on filedocumented in this encounter Care Teams Emotional Disabilities Teacher Relationship Specialty Start Date End Date Martha Gonsales DO [address] [place] [address] PCP - General Family Practice 11/25/22 documented as of this encounter
== END 2025-06-20 13:52 | disposition home or self-care (01) ==
LOC: ANHLAB 13:52
PROVIDERS: PCP Family Medicine; Visit Provider Internal Medicine Hematology & Oncology
DX: C91.10 Chronic lymphocytic leukemia of B-cell type not having achieved remission (principal)
CPT/HCPCS: 36415; 80047; 85025; 85055